=== PATIENT | female | born 1985 | race Caucasian/White ===

== ENCOUNTER 2024-07-20 10:34 | Emergency (ER) | payer OTHER, SELFPAY ==
[2024-07-20 11:02] VITALS: BP 144/91; PULSE 83; RESP 16; TEMP 36.8; O2SAT 95
--- NOTE | 2024-07-20 11:06 | ED_ITS ---
HPI - URI/Sore Throat General Chief Complaint: Upper Respiratory Infection Stated Complaint: Sore Throat Time Seen by Provider: 07/20/24 10:55 Source: patient and RN notes reviewed Mode of arrival: ambulatory Limitations: no limitations History of Present Illness HPI Narrative: Patient presents today complaining of sore throat, headache, nausea since yesterday. She has been taking Tylenol and ibuprofen with mild relief. Daughter sick with similar symptoms. Related Data Home Medications ?Medication ?Instructions ?Recorded ?Confirmed ?Last Taken ?Type levothyroxine 88 mcg tablet mcg 07/20/24 Unknown History sertraline 100 mg tablet mg 07/20/24 Unknown History Allergies Allergy/AdvReac Type Severity Reaction Status Date / Time Sulfa (Sulfonamide Allergy Unknown Unknown Verified 07/20/24 11:01 Antibiotics) Review of Systems Review of Systems: CONSTITUTIONAL: Denies body aches, fever, chills, or sweats. EYES: Denies visual changes, redness, or discharge. ENT: Denies rhinorrhea, congestion, or otalgia.+ sore throat CARDIOVASCULAR: Denies chest pain, palpitations, or edema. RESPIRATORY: Denies cough or dyspnea. GASTROINTESTINAL: Denies abdominal pain, vomiting, or diarrhea.+ nausea GENITOURINARY: Denies dysuria or hematuria. SKIN: Denies rash, itching, or wounds. MUSCULOSKELETAL: Denies back pain, joint pain, or myalgia. NEUROLOGIC: Denies numbness, tingling, or weakness.+ headache PSYCH: Denies depression or anxiety. PMFSH Comments At time of signature, I have reviewed and agree with nursing past medical, surgical, social and family history unless otherwise noted. Please see nursing chart for further information. There is no relevant family history pertinent to the presenting complaint Exam Narrative: GENERAL: Well-appearing, well-nourished, and in no acute distress. HEAD: Normocephalic, atraumatic. EYES: EOMI. No redness or drainage. Conjunctivae normal. ENT: Mucous membranes pink and moist. Nares clear. No rhinorrhea. TMs normal bilaterally. Throat mildly erythematous without edema or exudate. Uvula m idline. NECK: Normal AROM. Supple. No lymphadenopathy. CHEST: No respiratory distress. Clear to auscultation. HEART: Regular rate and rhythm. No murmur appreciated. EXTREMITIES: Normal range of motion. No edema. SKIN: Warm, dry, no rash. Capillary refill normal. Normal skin turgor. NEURO: No focal deficits. Alert and oriented x3. Gait steady. PSYCH: Normal affect. No signs of depression or anxiety. Course Course Level of Care: [facility] Visit Vital Signs Vital signs: Vital Signs Temperature 98.3 F 07/20/24 11:02 Pulse Rate 83 07/20/24 11:02 Respiratory Rate 16 07/20/24 11:02 Blood Pressure 144/91 H 07/20/24 11:02 Pulse Oximetry 95 07/20/24 11:02 Oxygen Delivery Room Air 07/20/24 11:02 Temperature 98.3 F 07/20/24 11:02 Pulse Rate 83 07/20/24 11:02 Respiratory Rate 16 07/20/24 11:02 Blood Pressure 144/91 H 07/20/24 11:02 Pulse Oximetry 95 07/20/24 11:02 Oxygen Delivery Room Air 07/20/24 11:02 Reviewed MDM - URI/Sore Throat MDM Narrative Medical decision making narrative: Rapid strep negative. Culture pending. Symptoms likely viral in etiology. Discussed [id number] medication use and duration of illness. Declines prescription antiemetic. Anticipatory guidance given. Differential Diagnosis Differential diagnosis: Likely upper respiratory infection, viral infection, pharyngitis and other (Strep throat) Lab Data Attestation: I reviewed the patient's lab results. Lab results narrative: Rapid strep negative Critical Care Time Critical Care Time Critical Care Time: No Discharge Plan Discharge Clinical Impression: Upper respiratory infection Qualifiers: URI type: unspecified URI Qualified Code(s): J06.9 - Acute upper respiratory infection, unspecified Patient Disposition: Home, Self-Care Condition: Stable Instructions: Upper Respiratory Infection (DC) Additional Instructions: Your rapid strep swab was negative today at [facility]. You will be notified in a few days if the culture comes back positive for strep, and appropriate antibiotics will be called in for you at that time. Your symptoms are likely due to a viral illness, which is not treated with antibiotics. Viral symptoms can be present for up to 7-10 days. Take Tylenol or ibuprofen for fever or pain. Rest and stay hydrated. Follow up with your PCP in 7 days if symptoms are not improving. Go to the ER immediately if you have any difficulty breathing or swallowing. Your blood pressure was elevated above 120/80 today at Urgent Care. This puts you above the threshold for follow up. Please schedule a followup visit with your personal physician as soon as possible, for further evaluation and treatment. Even blood pressure exceeding 120/80 may indicate pre-hypertension. Patient Language: Chinese Prescriptions: No Action sertraline 100 mg tablet levothyroxine 88 mcg tablet Follow-up/Referrals: Varun,Yasmin Jacob MD [Primary Care Provider] - Time of Disposition: 11:08
[2024-07-20 11:08] LABS: EDSTREPNEGPOS1 Negative (Negative)
--- OUTSIDE RECORDS SUMMARY | 2024-07-20 12:50 | XMS_ITS | Clinical Summary ---
Author Organization [employer] [address] [place] [address] Phone Care Team Providers Care Fashion Artist Name Role Phone Lewis Stephens MD Primary Care Provider Allergies Active Allergy Reactions Criticality Noted Date Comments Sulfa (Sulfonamide Antibiotics) Rash Low 01/2015 Medications No known medications Active Problems Problem Noted Date Diagnosed Date Dysmenorrhea 07/12/2014 Heavy menstrual bleeding 07/12/2014 Dyspareunia 07/12/2014 PTC, s/p MgSO4, hold procard ia, lasix 20 x2, chest pain: elev trop-now WNL, abn EKG-now WNL, cards consult, bnp 1867, echo nl, BMZ max 11/16-->5a 11/17/2012 Social History Tobacco Use Types Packs/Day Years Used Date Smoking Tobacco: Never Alcohol Use Standard Drinks/Week Comments No 0 (1 standard drink = 0.6 oz pur e alcohol) Comments No Sex and Gender Information Value Date Recorded Sex Assigned at Not on file Legal Sex Female 9:17 AM CDT Gender Identity Not on file Sexual Orientation Not on file 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 Not on file Not on file Not on stacy e Last Filed Vital Signs Vital Sign Reading Time Taken Comments Blood Pressure 102/60 07/12/2014 10:59 AM CDT Pulse 83 11/19/2012 3:20 PM CDT Temperature 36.6 C (97.9 F) 11/19/2012 3:20 PM CDT Respiratory Rate 18 11/19/2012 3:20 PM CDT Oxygen Saturation 98% 11/19/2012 3:20 PM CDT Inhaled Oxygen Concentration - - Weight 59 kg (130 lb) 07/12/2014 10:59 AM CDT Height 161.3 cm (5' 3.5 ) 07/12/2014 10:59 AM CD T Body Mass Index 22.67 07/12/2014 10:59 AM CDT Plan of Treatment Health Maintenance Due Date Last Done Comments CERVICAL CANCER SCREENING 07/12/20172014, 05/06/2013 (Previously completed) INFLUENZA VACCINE (#1) 2023 8, 05/31/2015 DTAP/TDAP/TD VACCINES (3 - T d or Tdap) 03/13/2028 03/13/2018, 05/31/2015 HEPATITIS B VACCINES Completed 11/23/1996, 07/17/1996, 06/19/1996 HPV VACCINES Aged Out No longer eligi ble based on patient's age to complete this topic PNEUMOCOCCAL VACCINE 0-49 YEARS Aged Out No longer eligible b ased on patient's age to complete this topic Procedures Procedure Name Priority Date/Time Associated Diagnosis Comments CERV/VAG CYTO SCREEN PAP RLFX HPV Routine 07/12/2014 11:01 AM CDT Routine gynecological examination Special screening examination for human papillomavirus (HPV) from Last 3 Months or Most Recently Relevant to Health Maintenance Results * CERV/VAG CYTOPATH, THIN PREP IMAGR RFLX HPV (CP) (07/12/2014 11:01 AM CDT) CLINICAL INFORMATION [employer] [facility] Comment: Routine exam HEALTHY LAST MENSTRUAL PERIOD [employer] [facility] Comment:07/01/14 PREV PAP: [employer] [facility] Comment:05/06/13 NIL PREV BX: [employer] [facility] Comment:Information not prov ided SOURCE [employer] [facility] Comment:Endocervix ADEQUACY: [employer] [facility] Comment: Satisfactory for evaluation. Endocervical/transformation zone component present. INTERPRETATION [employer] [facility] Comment:Negative for intraep ithelial lesion or malignancy. COMMENT [employer] [facility] Comment: This Pap test has been evaluated with computer assisted technology. RIBBON LAPPER TENDER: [employer] [facility] Comment: STEVE, CT(ASCP) Test Performed at: [employer] [address] [place] [address] RADHA HOOKER MD Endocervical 07/12/2014 11:0 1 AM CDT Aston Young MD PATHOLOGY/CYTOLOGY ORDERABLES Fi nal Result [employer] [facility] [address] [place] [address] from Last 3 Months or Most Recently Relevant to Health Maintenance Insurance Advance Directives For more information, please contact: [phone] * Full Code (Latest Code Status on File) Date Activated Date Inactivated Comments 11/17/2012 4:21 AM 11/19/2012 7:11 PM Care Teams Fashion Artist Relationship Specialty Start Date End Date Lewis Stephens MD [address] [place] [address] PCP - General Internal Medicine 06/17/14
--- OUTSIDE RECORDS SUMMARY | 2024-07-20 12:51 | XMS_ITS | Referral Summary ---
Author Organization [facility] [place] [address] [facility] [place] Address [address] [place] [address] Care Team Providers Care Claims Attorney Name Role Phone Eden Cook BORDEREAU CLERK Primary Care Provider + Allergies Active Allergy Reactions Criticality Noted Date Comments Sulfa (Sulfonamide Antibiotics) Rash Reaction: Rash, Medications SUMAtriptan (IMITREX) 100 mg tablet Take 1 tablet (100 mg total) by mouth daily as needed 3 Active simethicone (GAS-X) 125 mg capsule Take one tablet up to 4 times daily for problematic bloating and nausea. 120 capsule 3 3 Active tiZANidine (ZANAFLEX) 4 mg tabletIndicati ons:Lumbago of lumbar region with sciatica Take 1 tablet (4 mg total) by mouth every 6 (six) hours as needed (Take as directed to relax muscles) Collaborating physician Rolly Britt MD 20 tablet 3 Active levothyroxine (SYNTHROID) 88 mcg tablet Take 1 tablet (88 mcg total) by mouth daily 3 Active benzonatate (TESSALON) 200 mg capsuleIndicat ions:Acute cough Take 1 capsule (200 mg total) by mouth 3 (three) times a day as needed for cough 42 capsule 3 Active albuterol HFA (PROVENTIL HFA,VENTOLIN HFA,PROAIR HFA) 90 mcg/actuation inhalerIndicat ions:Acute cough Inhale 2 puffs every 6 (six) hours as needed for wheezing 1 each 3 Active Active Problems Problem Noted Date Diagnosed Date Cellulitis and abscess of lower extremity 2022 Irritable bowel syndrome wit h both constipation and diarrhea 01/24/2023 Bloating 01/24/[address] scan, small bowel 01/24/[address] scan, colon 01/24/2023 Right sided abdominal pain 01/24/2023 Migraine 01/04/2023 Fatigue 07/31/2022 Hypothyroidism 02/16/2022 High thyroid stimulating hormone (TSH) level Mixed anxiety and depressive disorder 11/16/2021 Multiple joint pain 11/07/2021 Bilateral elbow joint pain 08/29/2021 Bilateral carpal tunnel syndrome 06/05/2021 Impingement syndrome of right shoulder region Lateral epicondylitis of right elbow 06/05/2021 Pain in joint of right shoulder 06/05/2021 Obese 05/11/2021 Anxiety 03/01/2020 Tension-type headache 03/01/2020 Sciatica of right side 10/02/2016 Kidney stone 10/02/2016 Pharyngeal disorder 09/02/2015 Dysmenorrhea 07/12/2014 Heavy menstrual bleeding 07/12/2014 contractions 11/17/2012 Social History Tobacco Use Types Packs/Day Years Used Date Smoking Tobacco: Never Smokeless Tobacco: Never Tobacco Cessation:Counseling Given: Not Answered Alcohol Use Standard Drinks/Week Comments Yes 0 (1 standard drink = 0.6 oz pur e alcohol) AUDIT-C Answer Date Recorded Q1: How often do you have a drink containing alc ohol? Monthly or less 01/24/2023 Average Number of Drinks Not on file 023 Frequency of Binge Drinking Not on file 01/05 Personal Safety Answer Date Recorded Have you ever been in or are you currently in a harmful physical or emotional relationship or is someone making you feel afraid or unsafe? Denies 03/20/2023 Comments No Sex and Gender Information Value Date Recorded Sex Assigned at Not on file Legal Sex Female 2:54 PM SUMATRA OPENER Gender Identity Not on file Sexual Orientation Not on file Last Filed Vital Signs Vital Sign Reading Time Taken Comments Blood Pressure 126/84 04/24/2023 6:14 PM SUMATRA OPENER Pulse 78 04/24/2023 6:14 PM SUMATRA OPENER Temperature 37.7 C (99.9 F) 04/24/2023 6:14 PM SUMATRA OPENER Respiratory Rate 22 04/24/2023 6:14 PM SUMATRA OPENER Oxygen Saturation 99% 04/24/2023 6:14 PM SUMATRA OPENER Inhaled Oxygen Concentration - - Weight 83 kg (183 lb) 04/24/2023 6:14 PM SUMATRA OPENER Height 162.6 cm (5' 4 ) 04/24/2023 6:14 PM SUMATRA OPENER Body Mass Index 31.41 04/24/2023 6:14 PM SUMATRA OPENER Plan of Treatment Not on file Insurance [facility] CHOICE PLUS [facility] CHOICE PLUS Advance Directives For more information, please contact: [phone] * Full Code (Latest Code Status on File) Date Activated Date Inactivated Comments 03/20/2023 11:24 AM 03/20/2023 5:38 PM * Full Code Date Activated Date Inactivated Comments 03/20/2023 11:24 AM 03/20/2023 11:24 AM Care Teams Claims Attorney Relationship Specialty Start Date End Date Eden Cook NP [address] [place] [address] PCP - General Nurse Practitioner 03/26/22
--- OUTSIDE RECORDS SUMMARY | 2024-07-20 12:51 | XMS_ITS | Data Portability ---
Author Organization [facility]ERSocorroBonaparte H Address [address] [facility] [place] [address] Care Team Providers Care Conservation Specialist Name Role Phone BRANDISATHYACOLETTE Charge Master Analyst DOE STANTON Primary Care Provider Unavailab le Assessment Encounter Date Assessment Date Assessment LastModified by Organization Details LastModified Time 09/10/2017 09/10/2017 Newly with twins per US zone ( about 8 weeks today) discussed her nausea and some pubic bone pain as well as twin issues wanted to have her labs drawn. 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 discussed IUD expiration in future Not available 04/10/2024 12:11:02 Plan of Treatment Reminders Order Date Submit Date Provider Last Modified By Organization Details Last Modified Time Details Appointments ANY 15 2024 08:45A M DOE STANTON MD Not available Not available Not available Lab TSH, ultra-sen sitive, serum 2024 025 [email or web address] [facility], [address] [facility] [address], [place], [address], 06/18/2024 17:28:02 HbA1c (hemoglob in A1c), blood 2024 025 LEILANI [facility], [address] [facility], [place], [address], 06/06/2024 08:37:34 lipid panel, serum 2024 025 LEILANI [facility], [address] [facility] [address], [place], [address], 06/06/2024 08:37:29 CMP, serum or plasma 2024 025 [facility], [address] [place] [address], [place], [address], 06/06/2024 08:37:30 CBC 2024 025 [facility], [address] [place] [address], [place], [address], 06/06/2024 08:37:37 TSH, ultra-sen sitive, serum 2024 025 [facility], [address] [place] [address], [place], [address], 06/06/2024 08:37:32 iron + total iron-bind ing capacity (TIBC), serum 2024 025 [facility], [address] [place] [address], [place], [address], 06/06/2024 08:37:33 ferritin, serum or plasma 2024 025 [facility], [address] [place] [address], [place], [address], 06/06/2024 08:37:36 vitamin D, 25-hydrox y, total, serum 2024 025 [facility], [address] [place] [address], [place], [address], 06/06/2024 08:37:38 cytology report, thin prep, smear or scraping, cervical or vaginal 2023 024 [facility], [address] [place] [address], [place], [address], 04/16/2024 11:31:31 SARS CoV 2 RNA (COVID-19 ), QL, cardiology specialist-PCR, respirato ry specimen - cough, runny nose, fever, body aches. headaches . denies being exposed to pos COVID person. [place] [address] 2019 020 [facility] ([facility]), [address] [place], [address], 12/18/2019 20:00:58 hsv (1+2) igg, serum 2017 018 [facility], [address] [place] [address], [address], [place], [address], 09/14/2017 16:11:08 obstetric screen, serum or blood 2017 018 [facility], [address] [place] [address], [address], [place], [address], 09/14/2017 16:11:06 urinalysi s complete, reflex culture 2017 018 [facility], [address] [place] [address], [address], [place], [address], 09/14/2017 16:11:07 drug screen, urine 2017 018 [facility], [address] [place] [address], [address], [place], [address], 09/14/2017 16:11:07 HIV (1+O+2) Ab, serum 2017 018 [email or web address] [facility], [address] [place] [address], [address], [place], [address], 09/23/2017 09:53:43 Referral None recorded. Procedures None recorded. Surgeries None recorded. Imaging None recorded. Medication Orders levothyro xine 125 mcg tablet 2024 025 [id number], [address], [place], [id number], 06/18/2024 17:28:11 sertralin e 150 mg capsule 2024 025 [facility][id number], [address], [place], [place], [id number], 06/05/2024 14:38:52 Patient TargetsNo targets recorded. Patient Instructions Encounter Date Encounter Id Patient Instructions Last Modified By Organization Details Last Modified Time 12/17/2019 [id number] Reviewed the following recommendations: -Stay home and separate from others as much as possible. -Monitor your symptoms and seek medical attention for trouble breathing, persistent chest pain, confusion, or bluish lips or face. -Wear a mask if you must be around other people. -Wash your hands often for 20 seconds with soap and water and clean high-touch surfaces daily -You may discontinue home isolation if your symptoms are improving and it has been 10 days since symptoms started. [email or web address] Not available 12/17/2019 15:05:49 04/10/2024 [id number] A healthy lifestyle: care instructions Not available 04/10/2024 12:02:19 06/05/2024 [id number] A healthy lifestyle: care instructions Not available 06/05/2024 14:38:42 Reason for Referral None Reported. Results Created Date Observation Date Name Description Value Unit Range Abnormal Flag Note LastModifiedBy Organization Detail LastModifiedTime 09/11/19 18 09/11/2017 obste tric scree n, serum or blood HBsAg screen Negati ve negati ve Not Available [facility] ([facility]) [address] [place], [address], 09/14/2017 16:11:06 09/11/19 18 09/11/2017 obste tric scree n, serum or blood RPR Non Reacti ve non reacti ve Not Available [facility] ([facility]) [address] [place], [address], 09/14/2017 16:11:06 09/11/19 18 09/11/2017 obste tric scree n, serum or blood rubella antibodies, IgG 5.44 index immune >0.99 Non-i mmune <0.90 Equiv ocal 0.90 - 0.99 Immun e >0.99 Not Available [facility] ([facility]) [address] [place], [address], 09/14/2017 16:11:06 09/11/19 18 09/11/2017 obste tric scree n, serum or blood ABO grouping A Not Available [facility] ([facility]) [address] [place], [address], 09/14/2017 16:11:06 09/11/19 18 09/11/2017 obste tric scree n, serum or blood Rh factor Positi ve Pleas e note: Prior recor ds for this patie nt's ABO / Rh type are not avail able for addit ional verif icati on. Not Available [facility] ([facility]) [address] [place], [address], 09/14/2017 16:11:06 09/11/19 18 09/11/2017 obste tric scree n, serum or blood antibody screen Negati ve negati ve Not Available [facility] ([facility]) [address] [place], [address], 09/14/2017 16:11:06 09/11/19 18 09/11/2017 obste tric scree n, serum or blood WBC 10.2 x10e3 /uL 3.4-10 .8 Not Available [facility] ([facility]) [address] [place], [address], 09/14/2017 16:11:06 09/11/19 18 09/11/2017 obste tric scree n, serum or blood RBC 4.33 x10e6 /uL 3.77-5 .28 Not Available [facility] ([facility]) [address] [place] [address], [address], 09/14/2017 16:11:06 09/11/19 18 09/11/2017 obste tric scree n, serum or blood hemoglobin 12.6 g/dL 11.1-1 5.9 Not Available [facility] ([facility]) [address] [place], [address], 09/14/2017 16:11:06 09/11/19 18 09/11/2017 obste tric scree n, serum or blood hematocrit 37.4 % 34.0-4 6.6 Not Available [facility] ([facility]) [address] [place], [address], 09/14/2017 16:11:06 09/11/19 18 09/11/2017 obste tric scree n, serum or blood MCV 86 fL 79-97 Not Available [facility] ([facility]) [address] [place], [address], 09/14/2017 16:11:06 09/11/19 18 09/11/2017 obste tric scree n, serum or blood MCH 29.1 pg 26.6-3 3.0 Not Available [facility] ([facility]) [address] [place], [address], 09/14/2017 16:11:06 09/11/19 18 09/11/2017 obste tric scree n, serum or blood MCHC 33.7 g/dL 31.5-3 5.7 Not Available [facility] ([facility]) [address] [place], [address], 09/14/2017 16:11:06 09/11/19 18 09/11/2017 obste tric scree n, serum or blood RDW 14.2 % 12.3-1 5.4 Not Available [facility] ([facility]) [address] [place], [address], 09/14/2017 16:11:06 09/11/19 18 09/11/2017 obste tric scree n, serum or blood platelets 200 x10e3 /uL 150-37 9 Not Available [facility] ([facility]) [address] [place] [facility], [place], [address], 09/14/2017 16:11:06 09/11/19 18 09/11/2017 obste tric scree n, serum or blood neutrophils 72 % not estab. Not Available [facility] ([facility]) [address] [place] [facility], [place], [address], 09/14/2017 16:11:06 09/11/19 18 09/11/2017 obste tric scree n, serum or blood lymphs 22 % not estab. Not Available [facility] ([facility]) [address] [facility], [place], [address], 09/14/2017 16:11:06 09/11/19 18 09/11/2017 obste tric scree n, serum or blood monocytes 5 % not estab. Not Available [facility] ([facility]) [address] [facility], [place], [address], 09/14/2017 16:11:06 09/11/19 18 09/11/2017 obste tric scree n, serum or blood eos 1 % not estab. Not Available [facility] ([facility]) [address] [place] [facility], [place], [address], 09/14/2017 16:11:06 09/11/19 18 09/11/2017 obste tric scree n, serum or blood basos 0 % not estab. 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 0 above high normal Not Available [facility] ([facility]) [address] [place], [address], 09/14/2017 16:11:06 09/11/19 18 09/11/2017 obste tric scree n, serum or blood lymphs (absolute) 2.2 x10e3 /uL 0.7-3. 1 Not Available [facility] ([facility]) [address] [place], [address], 09/14/2017 16:11:06 09/11/19 18 09/11/2017 obste tric scree n, serum or blood monocytes(ab solute) 0.5 x10e3 /uL 0.1-0. 9 Not Available [facility] ([facility]) [address] [place], [address], 09/14/2017 16:11:06 09/11/19 18 09/11/2017 obste tric scree n, serum or blood eos (absolute) 0.1 x10e3 /uL 0.0-0. 4 Not Available [facility] ([facility]) [address] [place], [address], 09/14/2017 16:11:06 09/11/19 18 09/11/2017 obste tric scree n, serum or blood baso (absolute) 0.0 x10e3 /uL 0.0-0. 2 Not Available [facility] ([facility]) [address] [place], [address], 09/14/2017 16:11:06 09/11/19 18 09/11/2017 obste tric scree n, serum or blood immature granulocytes 0 % not estab. Not Available [facility] ([facility]) [address] [place], [address], 09/14/2017 16:11:06 09/11/19 18 09/11/2017 obste tric scree n, serum or blood immature grans (abs) 0.0 x10e3 /uL 0.0-0. 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 Not Available [facility] ([facility]) [address] [place], [address], 09/14/2017 16:11:07 09/11/19 18 09/11/2017 drug scree n, urine barbiturates Negati ve NG/mL cutoff =200 Not Available [facility] ([facility]) [address] [place], [address], 09/14/2017 16:11:07 09/11/19 18 09/11/2017 drug scree n, urine benzodiazepi mason Negati ve NG/mL cutoff =200 Not Available [facility] ([facility]) [address] [place], [address], 09/14/2017 16:11:07 09/11/19 18 09/11/2017 drug scree n, urine cannabinoid Negati ve NG/mL cutoff =50 Not Available [facility] ([facility]) [address] [place], [address], 09/14/2017 16:11:07 09/11/19 18 09/11/2017 drug scree n, urine cocaine (metab.) Negati ve NG/mL cutoff =300 Not Available [facility] ([facility]) [address] [place], [address], 09/14/2017 16:11:07 09/11/19 18 09/11/2017 drug scree n, urine methaqualone Negati ve NG/mL cutoff =300 Not Available [facility] ([facility]) [address] [place] [address], [address], 09/14/2017 16:11:07 09/11/19 18 09/11/2017 drug scree n, urine opiates Negati ve NG/mL cutoff =2000 Opiat e test inclu malcolm Codei ne and Morph ine only. Not Available [facility] ([facility]) [address] [place], [address], 09/14/2017 16:11:07 09/11/19 18 09/11/2017 drug scree n, urine phencyclidin e Negati ve NG/mL cutoff =25 Not Available [facility] ([facility]) [address] [place] [address], [address], 09/14/2017 16:11:07 09/11/19 18 09/11/2017 drug scree n, urine methadone screen, urine Negati ve NG/mL cutoff =300 Not Available [facility] ([facility]) [address] [place], [address], 09/14/2017 16:11:07 09/11/19 18 09/11/2017 drug scree n, urine propoxyphene , urine Negati ve NG/mL cutoff =300 Not Available [facility] ([facility]) [address] [place] [address], [address], 09/14/2017 16:11:07 09/11/19 18 09/11/2017 urina lysis compl ete, refle x cultu re specific gravity 1.024 1.005- 1.030 Not Available [facility] ([facility]) [address] [place], [address], 09/14/2017 16:11:07 09/11/19 18 09/11/2017 urina lysis compl ete, refle x cultu re pH 5.0 5.0-7. 5 Not Available [facility] ([facility]) [address] [place], [address], 09/14/2017 16:11:07 09/11/19 18 09/11/2017 urina lysis compl ete, refle x cultu re urine-color Yellow yellow Not Available [facility] ([facility]) [address] [place], [address], 09/14/2017 16:11:07 09/11/19 18 09/11/2017 urina lysis compl ete, refle x cultu re appearance Clear clear Not Available [facility] ([facility]) [address] [place], [address], 09/14/2017 16:11:07 09/11/19 18 09/11/2017 urina lysis compl ete, refle x cultu re WBC esterase 1+ negati ve abnormal Not Available [facility] ([facility]) [address] [place], [address], 09/14/2017 16:11:07 09/11/19 18 09/11/2017 urina lysis compl ete, refle x cultu re protein Negati ve negati ve/tra ce Not Available [facility] ([facility]) [address] [place], [address], 09/14/2017 16:11:07 09/11/19 18 09/11/2017 urina lysis compl ete, refle x cultu re glucose Negati ve negati ve Not Available [facility] ([facility]) [address] [place], [address], 09/14/2017 16:11:07 09/11/19 18 09/11/2017 urina lysis compl ete, refle x cultu re ketones Negati ve negati ve Not Available [facility] ([facility]) [address] [place], [address], 09/14/2017 16:11:07 09/11/19 18 09/11/2017 urina lysis compl ete, refle x cultu re occult blood Negati ve negati ve Not Available [facility] ([facility]) [address] [place], [address], 09/14/2017 16:11:07 09/11/19 18 09/11/2017 urina lysis compl ete, refle x cultu re bilirubin Negati ve negati ve Not Available [facility] ([facility]) [address] [place], [address], 09/14/2017 16:11:07 09/11/19 18 09/11/2017 urina lysis compl ete, refle x cultu re urobilinogen ,semi-qn 0.2 mg/dL 0.2-1. 0 Not Available [facility] ([facility]) [address] [place] [facility], [place], [address], 09/14/2017 16:11:07 09/11/19 18 09/11/2017 urina lysis compl ete, refle x cultu re nitrite, urine Negati ve negati ve Not Available [facility] ([facility]) [address] [place], [address], 09/14/2017 16:11:07 09/11/19 18 09/11/2017 urina lysis compl ete, refle x cultu re microscopic examination See below: Micro scopi c was indic ated and was perfo rmed. Not Available [facility] ([facility]) [address] [place], [address], 09/14/2017 16:11:07 09/11/19 18 09/11/2017 urina lysis compl ete, refle x cultu re WBC 6-10 /hpf 0 - 5 abnormal Not Available [facility] ([facility]) [address] [place], [address], 09/14/2017 16:11:07 09/11/19 18 09/11/2017 urina lysis compl ete, refle x cultu re RBC 0-2 /hpf 0 - 2 Not Available [facility] ([facility]) [address] [place], [address], 09/14/2017 16:11:07 09/11/19 18 09/11/2017 urina lysis compl ete, refle x cultu re epithelial cells (non renal) 0-10 /hpf 0 - 10 Not Available [facility] ([facility]) [address] [place], [address], 09/14/2017 16:11:07 09/11/19 18 09/11/2017 urina lysis compl ete, refle x cultu re epithelial cells (renal) 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 Not Available [facility] ([facility]) [address] [place], [address], 09/14/2017 16:11:07 09/11/19 18 09/11/2017 urina lysis compl ete, refle x cultu re casts BOX WORKER Not Available [facility] ([facility]) [address] [place], [address], 09/14/2017 16:11:07 09/11/19 18 09/11/2017 urina lysis compl ete, refle x cultu re cast type BOX WORKER Not Available [facility] ([facility]) [address] [place] [address], [address], 09/14/2017 16:11:07 09/11/19 18 09/11/2017 urina lysis compl ete, refle x cultu re crystals BOX WORKER Not Available [facility] ([facility]) [address] [facility], [place], [address], 09/14/2017 16:11:07 09/11/19 18 09/11/2017 urina lysis compl ete, refle x cultu re crystal type BOX WORKER Not Available [facility] ([facility]) [address] [place], [address], 09/14/2017 16:11:07 09/11/19 18 09/11/2017 urina lysis compl ete, refle x cultu re mucus threads Presen t not estab. 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 Not Available [facility] ([facility]) [address] [place], [address], 09/14/2017 16:11:07 09/11/19 18 09/11/2017 urina lysis compl ete, refle x cultu re trichomonas BOX WORKER Not Available [facility] ([facility]) [address] [place], [address], 09/14/2017 16:11:07 09/11/19 18 09/11/2017 urina lysis compl ete, refle x cultu re comment BOX WORKER Not Available [facility] ([facility]) [address] [place], [address], 09/14/2017 16:11:07 09/11/19 18 09/11/2017 urina lysis compl ete, refle x cultu re microscopic examination 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 Not Available [facility] ([facility]) [address] [facility], [place], [address], 09/14/2017 16:11:07 09/11/19 18 09/14/2017 urina lysis compl ete, refle x cultu re urine culture, routine Final report Not Available [facility] ([facility]) [address] [facility], [place], [address], 09/14/2017 16:11:07 09/11/19 18 09/14/2017 urina lysis compl ete, refle x cultu re result 1 Commen t Mixed uroge nital irineo Great er than 100,0 00 colon y formi ng units per mL Not Available [facility] ([facility]) [address] [facility], [place], [address], 09/14/2017 16:11:07 09/11/19 18 09/11/2017 hsv (1+2) igg, serum hsv 1 IgG, type spec <0.91 index 0.00-0 .90 Negat ian <0.91 Equiv ocal 0.91 - 1.09 Posit ian >1.09 Note: Negat ian indic ates no antib odies detec cherri to HSV-1 . Equiv ocal may sugge st early infec tion. If clini oscar appro priat e, retes t at later date. Posit ian indic ates antib odies detec cherri to HSV-1 . Not Available [facility] ([facility]) [address] [facility], [place], [address], 09/14/2017 16:11:08 09/11/19 18 09/11/2017 hsv (1+2) igg, serum hsv 2 IgG, type spec <0.91 index 0.00-0 .90 Negat ian <0.91 Equiv ocal 0.91 - 1.09 Posit ian >1.09 Note: Negat ian indic ates no antib odies detec cherri to HSV-2 . Equiv ocal may sugge st early infec tion. If clini oscar appro priat e, retes t at later date. Posit ian indic ates antib odies detec cherri to HSV-2 . Not Available [facility] ([facility]) [address] [facility], [place], [address], 09/14/2017 16:11:08 09/11/19 18 09/11/2017 HIV (1+O+ 2) Ab, serum HIV screen 4TH generation wrfx Non Reacti ve non reacti ve Not Available [facility] ([facility]) [address] [facility], [place], [address], 09/14/2017 16:11:08 12/17/19 20 12/17/2019 SARS CoV 2 RNA (COVI D-19) , QL, cardiology specialist-P CR, respi rator y speci men sars - cov - 2 PCR NEGATI VE mL Not Available [facility] ([facility]) [address] [place] [address], [address], 12/18/2019 20:00:58 12/17/19 20 12/17/2019 SARS CoV 2 RNA (COVI D-19) , QL, cardiology specialist-P CR, respi rator y speci men covidcom1 COMME NTS: This assay is desig radu to detec t the RdRp and N genes of SARS- CoV-2 using nucle ic acid ampli ficat ion. A negat ian resul t does not precl ude the possi bilit y of 2019- nCoV infec tion since the adequ acy of sampl e colle ction and/o r low viral burde n may resul t in the prese nce of viral nucle ic acids level s below the percy tical sensi tivit y of this test metho d. Not Available [facility] ([facility]) [address], [place], [address], 12/18/2019 20:00:58 12/17/19 20 12/17/2019 SARS CoV 2 RNA (COVI D-19) , QL, cardiology specialist-P CR, respi rator y speci men covidcom2 Posit ian resul ts are indic ative of the prese nce of SARS- CoV-2 RNA and do not rule out bacte rial infec tion or co-in fecti on with other virus es. Not Available [facility] ([facility]) [address] [facility], [place], [address], 12/18/2019 20:00:58 12/17/19 20 12/17/2019 SARS CoV 2 RNA (COVI D-19) , QL, cardiology specialist-P CR, respi rator y speci men covidcom3 Test resul ts shoul d be used along with other clini jennifer obser vatio ns, patie nt histo ry, epide miolo gical infor matio n and [facility]. Not Available [facility] ([facility]) [address] [facility], [place], [address], 12/18/2019 20:00:58 12/17/19 20 12/17/2019 SARS CoV 2 RNA (COVI D-19) , QL, cardiology specialist-P CR, respi rator y speci men covidcom4 This test has recei akosua FDA Emerg ency Use Autho rizat ion and has been verif ied by [facility] . This test is only autho rized for the durat ion of the decla ratio n and the circu mstan michaelle that exist to justi fy the autho rizat ion of the emerg ency use of in vitro diagn ostic tests for the detec tion of SARS- CoV-2 virus and/o r diagn osis of COVID -19 infec tion under secti on 564 (b) (1) of the Act. 11 U.S.C . 360bb b-3 (b) (1), unles s the autho rizat ion is termi nated or revok ed soone r. Not Available [facility] (Lab) [address] [place], [address], 12/18/2019 20:00:58 12/17/19 20 12/17/2019 SARS CoV 2 RNA (COVI D-19) , QL, cardiology specialist-P CR, respi rator y speci men covidcom5 [place] [facility] is certi fied under CLIA- 88 as quali fied to perfo rm high compl exity testi ng. This testi ng was perfo rmed in the [facility] [place] [place] [address] (CLIA Licen se #[id number], CAP #[id number], AU-ID #[id number]). Not Available [facility] (Lab) [address] [place], [address], 12/18/2019 20:00:58 12/17/19 20 12/17/2019 SARS CoV 2 RNA (COVI D-19) , QL, cardiology specialist-P CR, respi rator y speci men covidcom6 Facts heet for healt hcare provi ders: https ://ww w.fda .gov/ media /1362 56/do wnloa d Facts heet for patie nts: https ://ww w.fda .gov/ media /1362 57/do wnloa d Not Available [facility] (Lab) [address] [facility], [place], [address], 12/18/2019 20:00:58 04/10/20 24 04/16/2024 IGP, RFX APTIM A HPV ASCU diagnosis: COMMEN T NEGAT IAN FOR INTRA EPITH ELIAL LESIO N OR MALLESA MARTINEZ . Not Available [facility] ([facility]) [address] [facility], [place], [address], 04/16/2024 11:31:30 04/10/20 24 04/16/2024 IGP, RFX APTIM A HPV ASCU specimen adequacy: BRIANA Ervin Satis facto ry for evalu ation . Endoc ervic al and/o r squam ous metap lasti c cells (endo cervi jennifer compo nent) are prese nt. Not Available [facility] ([facility]) [address] [place], [address], 04/16/2024 11:31:30 04/10/20 24 04/16/2024 IGP, RFX APTIM A HPV ASCU clinician provided ICD10: BRIANA Ervin Z01.4 19 Not Available [facility] ([facility]) [address] [place], [address], 04/16/2024 11:31:30 04/10/20 24 04/16/2024 IGP, RFX APTIM A HPV ASCU performed by: Sarah Haddad (ASCP ) Not Available [facility] ([facility]) [address] [place], [address], 04/16/2024 11:31:30 04/10/20 24 04/16/2024 IGP, RFX APTIM A HPV ASCU . . Not Available [facility] ([facility]) [address] [place], [address], 04/16/2024 11:31:30 04/10/20 24 04/16/2024 IGP, RFX APTIM A HPV ASCU note: BRIANA Ervin The Pap smear is a scree soledad test desig radu to aid in the detec tion of shun ligna nt and malig nant condi tions of the uteri ne cervi x. It is not a diagn ostic proce dure and shoul d not be used as the sole means of detec ting cervi jennifer cance r. Both false -posi tive and false -nega tive repor ts do occur . Not Available [facility] ([facility]) [address] [place], [address], 04/16/2024 11:31:30 04/10/20 24 04/16/2024 IGP, RFX APTIM A HPV ASCU test methodology: COMMEN T This liqui d based ThinP rep(R ) pap test was jose eduardo lovelace with the use of an image guide stacie pineda Not Available [facility] ([facility]) [address] [place], [address], 04/16/2024 11:31:30 04/10/20 24 04/16/2024 IGP, RFX APTIM A HPV ASCU . COMMEN T The HPV DNA refle x crite carissa were not met with this speci men resul t there fore, no HPV testi ng was perfo rmed. Not Available [facility] ([facility]) [address] [facility], [place], [address], 04/16/2024 11:31:30 06/05/19 25 06/06/2024 LIPID PANEL cholesterol, total 169 mg/dL 100-19 9 Not Available [facility] ([facility]) [address] [place], [address], 06/06/2024 08:37:29 06/05/19 25 06/06/2024 LIPID PANEL triglyceride s 185 mg/dL 0-149 above high normal Not Available [facility] ([facility]) [address] [place], [address], 06/06/2024 08:37:29 06/05/19 25 06/06/2024 LIPID PANEL HDL cholesterol 58 mg/dL >39 Not Available [facility] ([facility]) [address] [place], [address], 06/06/2024 08:37:29 06/05/19 25 06/06/2024 LIPID PANEL VLDL cholesterol jennifer 31 mg/dL 5-40 Not Available [facility] ([facility]) [address] [place], [address], 06/06/2024 08:37:29 06/05/19 25 06/06/2024 LIPID PANEL LDL chol calc ([facility]) 80 mg/dL 0-99 Not Available [facility] ([facility]) [address] [place], [address], 06/06/2024 08:37:29 06/05/19 25 06/06/2024 COMP. METAB OLIC PANEL (14) glucose 74 mg/dL 70-99 Not Available [facility] ([facility]) [address] [place], [address], 06/06/2024 08:37:30 06/05/19 25 06/06/2024 COMP. METAB OLIC PANEL (14) BUN 8 mg/dL 6-20 Not Available [facility] ([facility]) [address] [place], [address], 06/06/2024 08:37:30 06/05/19 25 06/06/2024 COMP. METAB OLIC PANEL (14) creatinine 0.66 mg/dL 0.57-1 .00 Not Available [facility] ([facility]) [address] [place], [address], 06/06/2024 08:37:30 06/05/19 25 06/06/2024 COMP. METAB OLIC PANEL (14) eGFR 116 mL/mi n/1.7 3 >59 Not Available [facility] ([facility]) [address] [place], [address], 06/06/2024 08:37:30 06/05/19 25 06/06/2024 COMP. METAB OLIC PANEL (14) BUN/creatini ne ratio 12 9-23 Not Available [facility] ([facility]) [address] [place], [address], 06/06/2024 08:37:30 06/05/19 25 06/06/2024 COMP. METAB OLIC PANEL (14) sodium 135 mmol/ L 134-14 4 Not Available [facility] ([facility]) [address] [place], [address], 06/06/2024 08:37:30 06/05/19 25 06/06/2024 COMP. METAB OLIC PANEL (14) potassium 3.8 mmol/ L 3.5-5. 2 Not Available [facility] ([facility]) [address] [place], [address], 06/06/2024 08:37:30 06/05/19 25 06/06/2024 COMP. METAB OLIC PANEL (14) chloride 100 mmol/ L 96-106 Not Available [facility] ([facility]) [address] [place], [address], 06/06/2024 08:37:30 06/05/19 25 06/06/2024 COMP. METAB OLIC PANEL (14) carbon dioxide, total 22 mmol/ L 20-29 Not Available [facility] ([facility]) [address] [place], [address], 06/06/2024 08:37:30 06/05/19 25 06/06/2024 COMP. METAB OLIC PANEL (14) calcium 9.5 mg/dL 8.7-10 .2 Not Available [facility] ([facility]) [address] [place], [address], 06/06/2024 08:37:30 06/05/19 25 06/06/2024 COMP. METAB OLIC PANEL (14) protein, total 7.3 g/dL 6.0-8. 5 Not Available [facility] ([facility]) [address] [place], [address], 06/06/2024 08:37:30 06/05/19 25 06/06/2024 COMP. METAB OLIC PANEL (14) albumin 4.7 g/dL 3.9-4. 9 Not Available [facility] ([facility]) [address] [place], [address], 06/06/2024 08:37:30 06/05/19 25 06/06/2024 COMP. METAB OLIC PANEL (14) globulin, total 2.6 g/dL 1.5-4. 5 Not Available [facility] ([facility]) [address] [place], [address], 06/06/2024 08:37:30 06/05/19 25 06/06/2024 COMP. METAB OLIC PANEL (14) bilirubin, total 0.4 mg/dL 0.0-1. 2 Not Available [facility] ([facility]) [address] [place], [address], 06/06/2024 08:37:30 06/05/19 25 06/06/2024 COMP. METAB OLIC PANEL (14) alkaline phosphatase 58 IU/L 44-121 Not Available [facility] ([facility]) [address] [place], [address], 06/06/2024 08:37:30 06/05/19 25 06/06/2024 COMP. METAB OLIC PANEL (14) AST (SGOT) 22 IU/L 0-40 Not Available [facility] ([facility]) [address] [place], [address], 06/06/2024 08:37:30 06/05/19 25 06/06/2024 COMP. METAB OLIC PANEL (14) ALT (SGPT) 19 IU/L 0-32 Not Available [facility] ([facility]) [address] [place], [address], 06/06/2024 08:37:30 06/05/19 25 06/06/2024 TSH RFX ON ABNOR MAL TO FREE T4 TSH 15.000 uIU/m L 0.450- 4.500 above high normal Not Available [facility] ([facility]) [address] [place], [address], 06/06/2024 08:37:32 06/05/19 25 06/06/2024 IRON AND TIBC iron bind.cap.(TI BC) 296 ug/dL 250-45 0 Not Available [facility] ([facility]) [address] [facility], [place], [address], 06/06/2024 08:37:33 06/05/19 25 06/06/2024 IRON AND TIBC UIBC 209 ug/dL 131-42 5 Not Available [facility] ([facility]) [address] [place], [address], 06/06/2024 08:37:33 06/05/19 25 06/06/2024 IRON AND TIBC iron 87 ug/dL 27-159 Not Available [facility] ([facility]) [address] [place], [address], 06/06/2024 08:37:33 06/05/19 25 06/06/2024 IRON AND TIBC iron saturation 29 % 15-55 Not Available [facility] ([facility]) [address] [place], [address], 06/06/2024 08:37:33 06/05/1906/06/2024 HEMOG LOBIN A1C hemoglobin A1C 5.3 % 4.8-5. 6 Predi abete s: 5.7 - 6.4 Diabe nancy: >6.4 Glyce tawanda contr ol for adult s with diabe nancy: <7.0 Not Available [facility] ([facility]) [address] [place], [address], 06/06/2024 08:37:34 06/05/1906/06/2024 T4F T4,free (direct) 0.69 NG/dL 0.82-1 .77 below low normal Not Available [facility] ([facility]) [address] [place], [address], 06/06/2024 08:37:35 06/05/19 25 06/06/2024 GLADYS TIN ferritin 77 NG/mL 15-150 Not Available [facility] ([facility]) [address] [facility], [place], [address], 06/06/2024 08:37:36 06/05/19 25 06/06/2024 CBC, PLATE LET, NO DIFFE RENTI AL WBC 8.4 x10e3 /uL 3.4-10 .8 Not Available [facility] ([facility]) [address] [facility], [place], [address], 06/06/2024 08:37:37 06/05/1906/06/2024 CBC, PLATE LET, NO DIFFE RENTI AL RBC 4.73 x10e6 /uL 3.77-5 .28 Not Available [facility] ([facility]) [address] [facility], [place], [address], 06/06/2024 08:37:37 06/05/19 25 06/06/2024 CBC, PLATE LET, NO DIFFE RENTI AL hemoglobin 14.2 g/dL 11.1-1 5.9 Not Available [facility] ([facility]) [address] [facility], [place], [address], 06/06/2024 08:37:37 06/05/19 25 06/06/2024 CBC, PLATE LET, NO DIFFE RENTI AL hematocrit 41.8 % 34.0-4 6.6 Not Available [facility] ([facility]) [address] [facility], [place], [address], 06/06/2024 08:37:37 06/05/1906/06/2024 CBC, PLATE LET, NO DIFFE RENTI AL MCV 88 fL 79-97 Not Available [facility] ([facility]) [address] [facility], [place], [address], 06/06/2024 08:37:37 06/05/19 25 06/06/2024 CBC, PLATE LET, NO DIFFE RENTI AL MCH 30.0 pg 26.6-3 3.0 Not Available [facility] ([facility]) [address] [place], [address], 06/06/2024 08:37:37 06/05/19 25 06/06/2024 CBC, PLATE LET, NO DIFFE RENTI AL MCHC 34.0 g/dL 31.5-3 5.7 Not Available [facility] ([facility]) [address] [place], [address], 06/06/2024 08:37:37 06/05/19 25 06/06/2024 CBC, PLATE LET, NO DIFFE RENTI AL RDW 13.0 % 11.7-1 5.4 Not Available [facility] ([facility]) [address] [place], [address], 06/06/2024 08:37:37 06/05/19 25 06/06/2024 CBC, PLATE LET, NO DIFFE RENTI AL platelets 231 x10e3 /uL 150-45 0 Not Available [facility] ([facility]) [address] [place], [address], 06/06/2024 08:37:37 06/05/19 25 06/06/2024 VITAM IN D, 25-HY DROXY vitamin D, 25-hydroxy 36.4 NG/mL 30.0-1 00.0 Vitam in D defic iency has been defin ed by the Insti tute of Medic ine and an Endoc rine Socie ty pract ice guide line as a level of serum 25-OH vitam in D less than 20 ng/mL (1,2) . The Endoc rine Socie ty went on to furth er defin e vitam in D insuf ficie ncy as a level betwe en 21 and 29 ng/mL (2). 1. IOM (Inst itute of Medic ine). 2010. Dieta ry refer ence deepa es for calci um and D. Brad harding [place]: The Natio nal [facility] . 2. Holic k MF, Claude saleem [place], Ayah off-F errar i BROWN, et al. Evalu ation , treat ment, and preve ntion of vitam in D defic iency : an Endoc rine Socie ty clini jennifer pract ice guide line. JCEM. 2010; 96(7) :1911 -30. Not Available [facility] ([facility]) [address] [facility], [place], [address], 06/06/2024 08:37:38 Result Notes None recorded. Problems Name Problem SNOMED Code Status Onset Date Resolution Date Notes Provider Name and Address Organization Details Recorded Time 52062274 Completed 201704/17/2018 FRANSISCA Bautista, [place] - [facility] 4 15:45:12 Past history of pre-eclam psia 22358629946 9100 Active 2024 DOE STANTON MD Attn: Accounting ,[address] [place], [address] , [facility] - [facility] 5 15:24:34 Depressiv e disorder 01600107 Active 2024 DOE STANTON MD Attn: Accounting ,[address] [place], [address] , [facility] - SI 5 15:24:19 Postpartu m depressio n [id number] Active JADE Wong, [place] - [facility] 6 15:58:02 Problem Notes None recorded. Procedures Surgical History Date Name Laterality Status Provider Name and Address Organization Details Recorded Time 04/10/20 24 Date of Last Pap Smear completed Vidhya Yepez RN [facility] 04/16/2024 12:07:51 05/06/19 23 Carpal tunnel surgery completed Andie Beverly [place] - [facility] 06/05/2024 14:13:41 05/06/19 23 procedure on elbow completed Andie Beverly [place] [facility] 06/05/2024 14:14:26 04/27/20 20 abdominoplasty completed Andie Beverly [place] [facility] 06/05/2024 14:11:13 Imaging Results None recorded. Procedure Notes None recorded. Medical Equipment None Reported. Allergies Allergen ID Allergen Name Allergen Category Reaction Reaction Severity Criticality Documentation Date Start Date Code Code System Note Provider Name and Address Organization Details Recorded Time 26510 Substance with sulfonami de structure and antibacte rial mechanism of action (substanc e) medicatio n Not available Not available Not available 11/10/2014 86924 8003 SNOMED Not Available Not Available Not Available Medications Name Sig Start Date Stop Date Status Note LastModified by Organization Details LastModified Time Mirena 21 mcg/24 hr (up to 8 years) 52 mg intrauterin e device Take by intrauter ine route. active Not Available Not Available No t Available buspirone 5 mg tablet TAKE 1 TABLET BY MOUTH TWICE DAILY 06/05 completed Not Available Not Available Not Available azithromyci n 250 mg tablet 04/10 completed Not Available Not Available Not Available ibuprofen 800 mg tablet 04/10 completed Not Available Not Available Not Available benzonatate 200 mg capsule TAKE 1 CAPSULE BY MOUTH THREE TIMES DAILY FOR UP TO 14 DAYS NEEDED FOR COUGH 04/10 completed Not Available Not Available Not Available sumatriptan 100 mg tablet TAKE 1 TABLET BY MOUTH EVERY DAY NEEDED 06/05 completed Not Available Not Available Not Available hydrocodone 5 mg-acetamin ophen 325 mg tablet 04/10 completed Not Available Not Available Not Available ondansetron HCl 4 mg tablet Take 1 tablet every 8 hours by oral route. 04/10 completed Not Available Not Available Not Available sertraline 100 mg tablet TAKE 1 AND 1/2 TABLETS BY MOUTH EVERY DAY 06/05 completed Not Available Not Available Not Available ciprofloxac in 500 mg tablet 04/10 completed Not Available Not Available Not Available omeprazole 40 mg capsule,del ayed release TAKE 1 CAPSULE BY MOUTH DAILY 06/05 completed Not Available Not Available Not Available levothyroxi ne 88 mcg tablet TAKE 1 TABLET BY MOUTH EVERY DAY 04/10 completed Not Available Not Available Not Available doxycycline monohydrate 100 mg capsule 04/10 completed Not Available Not Available Not Available levothyroxi ne 125 mcg tablet TAKE 1 TABLET BY MOUTH EVERY DAY BEFORE A MEAL FOR HYPOTHYRO IDISM 2024 active Not Available Not Available Not Avai lable levofloxaci n 500 mg tablet TAKE 1 TABLET BY MOUTH DAILY FOR 10 DAYS FOR PNEUMONIA 04/10 completed Not Available Not Available Not Available methylpredn isolone 4 mg tablets in a dose pack 04/10 completed Not Available Not Available Not Available amoxicillin 875 mg-potassiu m clavulanate 125 mg tablet TAKE 1 TABLET BY MOUTH EVERY 12 HOURS 04/10 completed Not Available Not Available Not Available escitalopra m 10 mg tablet 04/10 completed Not Available Not Available Not Available Sprintec (28) 0.25 mg-0.035 mg tablet Take 1 tablet every day by oral route for 28 days. 04/10 completed Not Available Not Available Not Available sertraline 150 mg capsule Take 1 capsule every day by oral route. 2024 active Not Available Not Available Not Avai lable Vitals Date Recorded Body height Body mass index (BMI) Body weight Systolic blood pressure Diastolic blood pressure Provider Name and Address Organization Details Last Updated DateTime 09/10/2017 160.02 cm 28.7 kg/m2 82322.96 394 g 112 mm[Hg] 78 mm[Hg] Judith eaton [facility] 8 16:20:46 Date Recorded Body height Body mass index (BMI) Body weight Systolic blood pressure Diastolic blood pressure Provider Name and Address Organization Details Last Updated DateTime 04/10/2024 160.02 cm 32.1 kg/m2 30461.65 g 133 mm[Hg] 94 mm[Hg] FRANSISCA Bautista [facility] 4 11:52:02 Date Recorded Body height Body mass index (BMI) Body weight Oxygen saturation Oxygen saturation in Arterial blood by Pulse oximetry Heart rate Body temperature Systolic blood pressure Diastolic blood pressure Provider Name and Address Organization Details Last Updated DateTime 5 160.02 cm 32.4 kg/m2 97576.7 5 g 98 % 98 % 72 /min 97.9 [degF] 142 mm[Hg] 94 mm[Hg] Andie Beverly [place] [facility] 5 14:03:43 Date Recorded Body height Provider Name an d Address Organization Details Last Updated DateTime 06/18/2024 160.02 cm Lorena García [place] [facility] 06/18 15:57:21 Social History Question Answer Notes LastModified by Organizat ion Details LastModified Time Tobacco Smoking Status Never Smoker FRANSISCA Bautista null, [place] [facility] 04/10/2024 11:53:38 What Is Your Level Of Alcohol Consumption? None Information not available 04/10/2024 Are You Blind Or Do You Have Difficulty Seeing? No Information not available 06/05/2024 What Is Your Level Of Caffeine Consumption? Heavy 06/05/[address] Mcmillan 6 To 7 Cans Daily Information not available 06/05/2024 In The 14 Days Before Symptom Onset, Have You Had Close Contact With A Laboratory-confir med COVID-19 While That Case Was Ill? No Information not available 06/05/2024 In The 14 Days Before Symptom Onset, Have You Had Close Contact With A Person Who Is Under Investigation For COVID-19 While That Person Was Ill? No Information not available 06/05/2024 Have You Been To An Area Known To Be High Risk For COVID-19? No Information not available 06/05/2024 Are You Currently Employed? No Information not available 06/05/2024 Are You Deaf Or Do You Have Serious Difficulty Hearing? No Information not available 06/05/2024 What Type Of Diet Are You Following? REGULAR Information not available 06/05/2024 Are There Any Guns Present In Your Home? No Information not available 06/05/2024 What Was The Date Of Your Most Recent Tobacco Screening? 06/05/2024 Information not available 06/05/2024 How Many Children Do You Have? 3 Information not available 06/05/2024 Do You Use Protection During Sex? No Information not available 06/05/2024 What Is Your Relationship Status? Information not available 06/05/2024 Do You Use Your Seat Belt Or Car Seat Routinely? Yes Information not available 06/05/2024 Are You Sexually Active? Yes Information not available 06/05/2024 Do You Have Smoke And Carbon Monoxide Detectors In Your Home? Yes Information not available 06/05/2024 Are You Passively Exposed To Smoke? Yes Information no t available 06/05/2024 Do You Feel Stressed (tense, Restless, Nervous, Or Anxious, Or Unable To Sleep At Night)? [id number] Information not available 06/05/2024 Do You Use Any Illicit Or Recreational Drugs? No Information not available 04/10/2024 Do You Use Sunscreen Routinely? Yes Information not available 06/05/2024 Has Tobacco Cessation Counseling Been Provided? No Information not available 04/10/2024 Do You Or Have You Ever Used Any Other Forms Of Tobacco Or Nicotine? No Information not available 04/10/2024 Sex: Female Functional Status Question Answer Note LastModified by Organizat ion Details LastModified Time Are you able to care for yourself? Yes Information not available 06/05/2024 What is your exercise level? Occasional Information not available 06/05/2024 Mental Status None recorded. Family History Relationship Description Onset Age of this Age Resolved Age Notes LastModified by Organization Details LastModified Time Father Hypertensive disorder [email or web address] Not available 06/05 14:08:29 Medical History Condition Response Coronary Artery Disease N Other N High Blood Pressure N Atrial Fibrillation N Thyroid Problems Y Kidney or Bladder Problems N GI Problems N Depression Y COPD N Blood Clots N Have you had a mammogram in the last yea r? N Skin Problems N Eating Disorder N Anemia N Heart Attack ([place]) N Anxiety Disorder Y Diabetes N Muscle, Joint, or Bone Problems N Arthritis N Seizures/Epilepsy N Have you had a colonoscopy in the last 1 0 years? Y Acid Reflux (GERD) N Cancer N Urinary Tract Infection Y Stroke N Asthma N Allergies N Have you had a PSA blood test in the las t year? N ADHD N Substance Abuse N High Cholesterol N Hepatitis N Liver Disease N Schizophrenia N Headaches Y Heart Failure N Osteoporosis N Gynecological History Statement/Question Response Flow Light Date of LMP 06/02/2024 STIs/STDs N Date of Last Pap Smear 04/10/2024 Duration of Flow (days) 1 Sexual Problems? N Current Control Method IUD LMP Definite Obstetrics History GPAL:G 3 P 3 0 0 3 Type Value Full Term 3 Living 3 Total 3 Immunizations Vaccine Type Date Status Note Provider Nam e and Address Organization Details Recorded Time Hib, unspecified formulation 9 completed Gretchen Pilar, RMA [place], [place] [facility] 04/10/2024 11:40:58 Influenza, MDCK, quadrivalent, PF 2 completed Gretchen Pilar, [place] [facility] 04/10/2024 11:40:58 MMR 2 completed Gretchen Pilar, [place] [facility] 04/10/2024 11:40:58 MMR 8 completed Gretchen Pilar, [place] [facility] 04/10/2024 11:40:58 COVID-19, mRNA, LNP-S, PF, 30 mcg/0.3 mL dose 1 completed Gretchen Wuce, [place] [facility] 04/10/2024 11:40:58 COVID-19, mRNA, LNP-S, PF, 30 mcg/0.3 mL dose 1 completed Gretchen Pilar, [place] [facility] 04/10/2024 11:40:59 Tdap 6 completed Gretchen Pilar, [place] [facility] 04/10/2024 11:40:59 Tdap 8 completed Gretchen Pilar, [place] [facility] 04/10/2024 11:40:59 DTP 8 completed Gretchen Pilar, [place] [facility] 04/10/2024 11:40:59 DTP 2 completed Gretchen Pilar, [place] [facility] 04/10/2024 11:40:59 DTP 9 completed Gretchen Pilar, [place] [facility] 04/10/2024 11:40:59 DTP 7 completed Gretchen Quezada, [place] [facility] 04/10/2024 11:40:59 DTP 7 completed Gretchen Pilar, [place] [facility] 04/10/2024 11:40:59 OPV 8 completed Gretchen Pilar, [place] [facility] 04/10/2024 11:40:59 OPV 2 completed Gretchen Pilar, [place] [facility] 04/10/2024 11:40:59 OPV 9 completed Gretchen Pilar, [place] [facility] 04/10/2024 11:40:59 OPV 7 completed Gretchen Pilar, [place] [facility] 04/10/2024 11:40:59 OPV 7 completed Gretchen Pilar, [place] [facility] 04/10/2024 11:40:59 Influenza, split virus, trivalent, PF 4 completed Gretchen Pilar, [place] [facility] 04/10/2024 11:40:59 Td (adult), 2 Lf tetanus toxoid, preservative free, adsorbed 2 completed Gretchen Pilar, [place] [facility] 04/10/2024 11:40:59 Hep B, adolescent or pediatric 7 completed Gretchen Pilar, [place] [facility] 04/10/2024 11:40:59 Hep B, adolescent or pediatric 7 completed Gretchen Pilar, [place] [facility] 04/10/2024 11:40:59 Hep B, adolescent or pediatric 7 completed Gretchen Pilar, [place] [facility] 04/10/2024 11:40:59 Influenza, split virus, quadrivalent, PF 6 completed Gretchen Pilar, [place] [facility] 04/10/2024 11:40:59 Influenza, split virus, quadrivalent, PF 0 completed Gretchen Wuce, [place] [facility] 04/10/2024 11:40:59 Influenza, split virus, quadrivalent, PF 8 completed Gretchen Quezada, RMA null, [facility] 04/10/2024 11:40:59 Influenza, split virus, quadrivalent, PF 3 completed Gretchen Quezada, RMA [place], [place] [facility] 04/10/2024 11:40:59 Past Encounters Encounter ID Performer Location Encounter Start Date Encounter Closed Date Diagnosis/Indication Diagnosis SNOMED-CT Code Diagnosis ICD10 Code Diagnosis Note [id number] María Blanco ([facility] 205) [address] [facility] [place] [id number] 11/10/2014 10:21:56 11/10/2014 12:01:45 [id number] María Blanco ([facility] 205) [address] [facility] [place] [address] 12/13/2014 16:42:14 12/14/2014 11:15:13 [id number] María Blanco ([facility] 205) [address] [facility] [place] [address] 01/14/2015 10:17:57 01/14/2015 12:27:47 [id number] María Blanco ([facility] 205) [address] [facility] [place] [address] 02/11/2015 14:07:40 02/11/2015 17:04:48 [id number] Z33.1 [id number] María Blanco ([facility] 205) [address] [place] [address] 03/11/2015 14:08:55 03/11/2015 15:02:55 [id number] Z33.1 [id number] María Blanco ([facility] 205) [address] [facility] [place] [address] 04/04/2015 14:47:10 04/04/2015 15:13:56 [id number] Z33.1 [id number] María Linares [facility] ([facility] 205) [address] [place] [address] 04/18/2015 14:47:16 04/18/2015 16:02:19 [id number] Z33.1 [id number] María Linares [facility]om[facility] ([facility] 205) [address] [facility] [place] [address] 05/05/2015 14:54:48 05/05/2015 17:01:09 [id number] Z33.1 [id number] María Jessicanora Linares [facility] ([facility] 205) [address] [facility] [place] [address] 05/12/2015 15:48:40 05/12/2015 16:18:51 Normal [id number] Z34.93 [id number] María Jessicanora Linares [facility] ([facility] 205) [address] [facility] [place] [address] 05/19/2015 10:16:58 05/19/2015 11:37:38 Normal [id number] Z34.93 [id number] María Linares [facility] ([facility] 205) [address] [facility] [place] [address] 05/26/2015 10:47:07 05/26/2015 16:45:52 Normal [id number] Z34.93 [id number] MD Vijay Chávez [facility] ([facility] 205) [address] [facility] [place] [address] 06/16/2015 14:48:42 06/16/2015 15:23:01 depression [id number] F53 [id number] MD Vijay Chávez [facility] ([facility] 205) [address] [facility] [place] [address] 07/14/2015 15:43:30 07/15/2015 09:39:25 care [id number] Z39.2 [id number] MD Vijay Chávez [facility] ([facility] 205) [address] [facility] [place] [address] 06/07/2017 10:15:07 06/12/2017 13:40:51 Gynecologic examination 59281051 Z01.419 Body mass index 25-29 - overweight [id number] Z68.28 [id number] MD Vijay Chávez 14 OB [address] [facility] [place] [address] 09/10/2017 15:33:12 09/12/2017 15:07:24 Body mass index 25-29 - overweight [id number] Z68.28 Normal [id number] Z34.90 [id number] GAURAV Christine NP Yessenia owen [address] [place] [address] 12/17/2019 14:50:06 12/18/2019 09:00:34 Suspected COVID-19 [id number] Z03.818 D/w pt the current pandemic of COVID-19 and call for social isolation in order to blunt the curve and minimize risk and spread. Encouraged patient and family to take restrictio ns seriously. They have verbalized understand ing of such. Viral syndrome [id number] B34.9 [id number] Colette Page MD [place] 14 OB [address] [facility] [address] [place] [address] 04/10/2024 11:32:22 04/20/2024 11:53:30 Depression screening 128081627 Z13.31 Obesity 663364079 E66.9 Gynecologi c examination 89283928 Z01.248 [id number] DOE STANTON MD [facility] ([facility]) [address] [place] [address] 06/05/2024 13:56:31 06/12/2024 15:55:17 Adult health examination 661904865 Z00.00 - Reviewed risks for cardiovasc ular disease, infection, and cancer; ordered screening tests as appropriat e- Recommende d updated 8535-3420 COVID vaccine Obesity 606241326 E66.81 1 Z68.32 - Provided handout on healthy lifestyle Diabetes m ellitus screening [id number] Z13.1 - BMI >25 at age >35. DM2 screening recommende d per USPSTF; f/u A1c. Past pregn abel history of pre-eclampsia [id number] 36921 Z87.59 - Advised patient of increased risk of HTN Depressive disorder 0781 9007 F32.A - Currently stable on sertraline 150 mg daily- Patient declined therapy referral at this time Elevated blood-pressure reading without diagnosis of hypertension 147877605 R03.0 - Discussed how to monitor BP at home- RTC in 2 weeks to review BP log, to determine whether diagnosis of HTN is appropriat e, and whether to start medication s for HTN Fatigue 88779741 R53.83 - DDx includes symptomati c anemia, thyroid disease, vitamin D deficiency , iron deficiency - f/u CBC with iron studies, TSH, vitamin D; will treat as indicated by results [id number] [facility] [address] [place] [address] 06/18/2024 15:22:57 06/19/2024 09:45:14 Hypothyroidism 97885244 E03.9 - Initial diagnosis 06/05/2024 with TSH of 15 and free T4 of 0.69- Will start weight based dosing with levothyrox ine 1.5-1.8 mcg/kg = 125 mcg. Patient instructed to take medication on empty stomach.- Repeat TSH in 6 weeks and adjust dose as indicated by results Health Concerns Section Related Observation LastModified by Organization Detai ls LastModified Time None Recorded Concern Status LastModified by Organization Details LastModified Time None Recorded Advance Directives Directive None Recorded Payers Encounter Date Sequence Insurance Name Policy Number Policy Nugent Covered Member ID Nugent Member ID Guarantor Name 09/10/2017 1 [facility] [id number] Iesha Chavez [id number] Iesha Chavez 12/17/[address] [place] [address] [id number] Iesha Chavez [id number] Iesha Chavez 04/10/2024 [facility] Iesha Chavez [id number] Iesha Chavez 06/05/2024 [facility] Iesha Chavez [id number] Iesha Chavez 06/18/2024 [facility] Iesha Chavez [id number] Iesha Chavez Notes Date Note Type Note Provider Name and Address Organization Details Recorded Time 12/17/2019 text/html COVID ScreeningReported bypatient.Onset/Durati on of fever:fever; highest fever 99.8 Associated Symptoms:coughCOVID-19 Symptoms September 2019Reported bypatient.COVID-19 Signs and Symptomscough resolved; cough same; fever resolved; fever same; shortness of breath resolved; chills resolved; repeated shaking with chills resolved; muscle pain resolved; muscle pain same; headache resolved; headache same; sore throat resolved; loss of taste or smell resolved; vomiting or diarrhea resolved; fatigue resolved; anorexia resolved Associated Symptoms:no sputum production; no wheezing; no runny nose; no vomiting; no diarrhea; no body aches; no nausea; no change in mental status; no hypotension; no tachycardia 33 yo female ,spoke via phone with C/O, cough, runny nose, fever, body aches. headaches. denies being exposed to pos COVID person. GAURAV Christine NP Attn: [address] [place], [address], [facility] 12/17/2019 15:06:14 04/10/2024 text/html Annual GYNReport ed bypatient.Menstrual cycle:Normal menses Urinary symptoms:No hematuria; No incontinence Vulva:No genital lesion Vagina:Normal vaginal discharge Breast:No breast pain; No breast lump; No nipple discharge Current Contraception:Intraute rine device (iud) Sexual complaints:No sexual complaints; No pain during intercourse; Normal libido Menopausal Symptoms:No menopausal symptoms; Normal vaginal lubrication Psychological symptoms:No depression; No anxiety; No PMDD Not seen by us in 6 years Transferred care to [place] while with last daughter.( had full term vaginal delivery ) Had IUD in place minimal spotting Colette Page MD Attn: [address] [place], [address], [facility] 04/10/2024 12:11:18 06/05/2024 text/html Annual wellness- Establishing care- Follows with Patricia Page MD for [facility] REPA[employer]ER needs Concerns today- Restarted sertraline in March after job loss and father passing away.- 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 Phentermine helped in the past and also helped with energy levels. Cardiovascular risk- HTN: History of pre-eclampsia with 1st . FHx in father.- DM2: No known FHx. No GDM.- HLD: No known FHx.- Personal history of MN, CVA? Had a heart issue when given IV MgSO4 during 1st for labor.- Family history of MN, CVA? No known FHx Infection risk- Prior testing for HIV? Neg in 2018- Prior testing for HepC? None on file- History of STIs? No- Currently having unprotected sex? No - using condoms- Vaccines due? COVID Plans for - Mirena placed 2019 Cancer screenings- Breast cancer: No known FHx.- Cervical cancer: NILM (04/2024)- Colon cancer: Colonoscopy done 03/2023 for hematochezia; no polyps, so repeat in 10 years for CRC screening.- Lung cancer: Never smoker DOE STANTON MD Attn: [address]ing[address] [facility], [place], [address], [facility] 06/05/2024 15:25:42 06/18/2024 text/html Hypothyroidism- Would like to know next steps after getting TSH results back Telehealth visit- Verbal consent for telehealth services was obtained by clinical staff.- The {{patient* parent guar zora}} was seen through {{synchronous audio and video technology audio only was used due to patient technology challenges audio only was used due to internet bandwidth issues audio only was used due to connectivity issues audio only was used due to inadequate patient equipment audio only was used due to technology failure audio only was used due to patient preference* audio only was used due to: ____}}.- Visit was conducted over [employer].- Location of provider: [facility] Healthcare clinic - {{Site 16 ([place])* Site 14 ([place]) Site 20 ([place])}}- Location of patient: {{home* work other:}}- Time started: 4:20 PM- Time ended: 4:28 PM- Total length of visit: 7m8s DOE STANTON MD Attn: Accounting,[address] [facility], [place], [address], [facility] 06/18/2024 17:31:35 OBGyn Episode Ob Episode Information Episode Created Date Number of Fetuses Patient Bloodtype Patient rh Status Prepregnancy Weight lbs Domestic Partner Domestic Partner Phone Father Name Resource Economist Status 04/07/20 24 1 DELETED Fetus Data First Name Last Name Admitted to NICU Weight (g) Sex Living Outcome Pediatric Complications Fetus ID Race Codes Race Delivery Type [id number] Ulises Calculation Initial Ulises Date Initial Exam Date Initial Exam Provider Initial Ultrasound Date Last Menstrual Period Date Ultra Sound Weeks Gestation 04/07/2024 0 Eighteen To Twenty Week Ulises Update Ultra Sound Date Fundal Height At Umbil Quickening Date Ultra Sound Latest Weeks Gestation Final Ulises Confirmed By Final Ulises Confirmed Date Final Ulises Date Ultra Sound Latest Days Gestation 0 0 Menstrual History Last Menstrual Date Menses Monthly On Bcp Conception Prior Menses Frequency Hcg Plus Date Menarche Onset Age Delivery Information Delivery Date Delivery Type Labor Anesthesia Weeks Gestation Incision Type Labor Labor Length Hrs Delivered By Post Complications Tubal Sterilization Discharge Date Comments Discharge Information Feeding Method Contraceptive Method Maternal HG B and HCT Levels Ob Episode Information Episode Created Date Number of Fetuses Patient Bloodtype Patient rh Status Prepregnancy Weight lbs Domestic Partner Domestic Partner Phone Father Name Resource Economist Status 04/10/20 24 1 CLOSED Fetus Data First Name Last Name Admitted to NICU Weight (g) Sex Living Outcome Pediatric Complications Fetus ID Race Codes Race Delivery Type F Full Term [id number] Ulises Calculation Initial Ulises Date Initial Exam Date Initial Exam Provider Initial Ultrasound Date Last Menstrual Period Date Ultra Sound Weeks Gestation 0 Eighteen To Twenty Week Ulises Update Ultra Sound Date Fundal Height At Umbil Quickening Date Ultra Sound Latest Weeks Gestation Final Ulises Confirmed By Final Ulises Confirmed Date Final Ulises Date Ultra Sound Latest Days Gestation 0 0 Menstrual History Last Menstrual Date Menses Monthly On Bcp Conception Prior Menses Frequency Hcg Plus Date Menarche Onset Age Delivery Information Delivery Date Delivery Type Labor Anesthesia Weeks Gestation Incision Type Labor Labor Length Hrs Delivered By Post Complications Tubal Sterilization Discharge Date Comments 8 39 Discharge Information Feeding Method Contraceptive Method Maternal HG B and HCT Levels Ob Episode Information Episode Created Date Number of Fetuses Patient Bloodtype Patient rh Status Prepregnancy Weight lbs Domestic Partner Domestic Partner Phone Father Name Resource Economist Status 11/11/19 15 1 CLOSED Fetus Data First Name Last Name Admitted to NICU Weight (g) Sex Living Outcome Pediatric Complications Fetus ID Race Codes Race Delivery Type [id number] Vaginal Ulises Calculation Initial Ulises Date Initial Exam Date Initial Exam Provider Initial Ultrasound Date Last Menstrual Period Date Ultra Sound Weeks Gestation 0 Eighteen To Twenty Week Ulises Update Ultra Sound Date Fundal Height At Umbil Quickening Date Ultra Sound Latest Weeks Gestation Final Ulises Confirmed By Final Ulises Confirmed Date Final Ulises Date Ultra Sound Latest Days Gestation 0 0 Menstrual History Last Menstrual Date Menses Monthly On Bcp Conception Prior Menses Frequency Hcg Plus Date Menarche Onset Age Delivery Information Delivery Date Delivery Type Labor Anesthesia Weeks Gestation Incision Type Labor Labor Length Hrs Delivered By Post Complications Tubal Sterilization Discharge Date Comments [address] [place]; MIL r/t [facility] Discharge Information Feeding Method Contraceptive Method Maternal HG B and HCT Levels Ob Episode Information Episode Created Date Number of Fetuses Patient Bloodtype Patient rh Status Prepregnancy Weight lbs Domestic Partner Domestic Partner Phone Father Name Resource Economist Status 11/11/19 15 1 A Positive Desires [facility] delivery CLOSED Fetus Data First Name Last Name Admitted to NICU Weight (g) Sex Living Outcome Pediatric Complications Fetus ID Race Codes Race Delivery Type Arie Jimenez on false 3458.63 9 F Full Term [id number] [id number] White Vaginal Ulises Calculation Initial Ulises Date Initial Exam Date Initial Exam Provider Initial Ultrasound Date Last Menstrual Period Date Ultra Sound Weeks Gestation 06/05/2015 11/10/2014 12/30/2014 08/31/2014 17 Eighteen To Twenty Week Ulises Update Ultra Sound Date Fundal Height At Umbil Quickening Date Ultra Sound Latest Weeks Gestation Final Ulises Confirmed By Final Ulises Confirmed Date Final Ulises Date Ultra Sound Latest Days Gestation 05/10/19 16 35 06/07/19 16 3 Pre- Flowsheet Flowsheet Date 11/10/2014 Cole Score Blood Edema Fundus Height Fundus Units Glucose Ketones Leukocytes Nitrite Labor Signs Protein Cervic Dilation Cervic Effacement Cervic Station 10 wks 0cm 0% -3 Type Weight in lbs Pre/Post Dialysis Refused 133.331556771079 BP Diastolic BP Location Tested BP Systolic BP Type 78 106 sitting Fetus Heart Rate Present A 172 Present Fetus Movement Comments Had severe pulmonary edema a nd possible MN due to Magnesium usage in first . Had issues as well as pre-eclampsia. Eventually delivered at 37-38 weeks. ( induced)CF (-) 06/03/12 Flowsheet Date 12/13/2014 Cole Score Blood Edema Fundus Height Fundus Units Glucose Ketones Leukocytes Nitrite Labor Signs Protein Cervic Dilation Cervic Effacement Cervic Station Type Weight in lbs Pre/Post Dialysis Refused 139.525053527349 BP Diastolic BP Location Tested BP Systolic BP Type 62 88 sitting Fetus Heart Rate Present A 156 Present Fetus Movement Comments 15 weeks doing well Flowsheet Date 01/14/2015 Cole Score Blood Edema Fundus Height Fundus Units Glucose Ketones Leukocytes Nitrite Labor Signs Protein Cervic Dilation Cervic Effacement Cervic Station none 19 wks none trace Type Weight in lbs Pre/Post Dialysis Refused 145.0230082769 BP Diastolic BP Location Tested BP Systolic BP Type 62 102 sitting Fetus Heart Rate Present A 158 Present Fetus Movement A Yes Comments Girl on US [place] No pro blems. declines msafp Flowsheet Date 02/11/2015 Cole Score Blood Edema Fundus Height Fundus Units Glucose Ketones Leukocytes Nitrite Labor Signs Protein Cervic Dilation Cervic Effacement Cervic Station 22 cm Type Weight in lbs Pre/Post Dialysis Refused 154.151055935921 BP Diastolic BP Location Tested BP Systolic BP Type 62 92 sitting Fetus Heart Rate Present A 140 Present Fetus Movement A Yes Comments doing well, no issues, sugar test at [facility] before next visit Flowsheet Date 03/11/2015 Cole Score Blood Edema Fundus Height Fundus Units Glucose Ketones Leukocytes Nitrite Labor Signs Protein Cervic Dilation Cervic Effacement Cervic Station 25 cm Type Weight in lbs Pre/Post Dialysis Refused 156.624577658547 BP Diastolic BP Location Tested BP Systolic BP Type 68 98 sitting Fetus Heart Rate Present A 140 Present Fetus Movement A Yes Comments doing well. discussed f.u US around 35-36 weeks due to breech Flowsheet Date 04/04/2015 Cole Score Blood Edema Fundus Height Fundus Units Glucose Ketones Leukocytes Nitrite Labor Signs Protein Cervic Dilation Cervic Effacement Cervic Station none 28 cm trace Type Weight in lbs Pre/Post Dialysis Refused 165.162004983661 BP Diastolic BP Location Tested BP Systolic BP Type 68 102 sitting Fetus Heart Rate Present A 154 Present Fetus Movement A Yes Comments doing well, no big issues. H appy BP is behaving Flowsheet Date 04/18/2015 Cole Score Blood Edema Fundus Height Fundus Units Glucose Ketones Leukocytes Nitrite Labor Signs Protein Cervic Dilation Cervic Effacement Cervic Station 30 cm none neg Type Weight in lbs Pre/Post Dialysis Refused 176.710518163976 BP Diastolic BP Location Tested BP Systolic BP Type 76 118 sitting Fetus Heart Rate Present A 144 Present Fetus Movement A Yes Comments f/u US after next visit ( br ee) Flowsheet Date 05/05/2015 Cole Score Blood Edema Fundus Height Fundus Units Glucose Ketones Leukocytes Nitrite Labor Signs Protein Cervic Dilation Cervic Effacement Cervic Station 32 cm none neg Type Weight in lbs Pre/Post Dialysis Refused 177.519076256797 BP Diastolic BP Location Tested BP Systolic BP Type 78 126 sitting Fetus Heart Rate Present A 144 Present Fetus Movement A Yes Comments Doing well, worried about ge tting pre eclampsia again Flowsheet Date 05/12/2015 Cole Score Blood Edema Fundus Height Fundus Units Glucose Ketones Leukocytes Nitrite Labor Signs Protein Cervic Dilation Cervic Effacement Cervic Station 34 cm none trace Type Weight in lbs Pre/Post Dialysis Refused 180.114270064473 BP Diastolic BP Location Tested BP Systolic BP Type 92 128 sitting Fetus Heart Rate Present A 137 Present Fetus Movement A Yes Comments doing well, trace protein, s light diastolic raise, pre-eclampsia issues re-enforced Flowsheet Date 05/19/2015 Cole Score Blood Edema Fundus Height Fundus Units Glucose Ketones Leukocytes Nitrite Labor Signs Protein Cervic Dilation Cervic Effacement Cervic Station none 35 cm none neg 2cm 60% -2 Type Weight in lbs Pre/Post Dialysis Refused 183.196081752223 BP Diastolic BP Location Tested BP Systolic BP Type 72 110 sitting Fetus Heart Rate Present A 138 Present Fetus Movement A Yes Comments doing well. BP excellent, no protein, labor instructions Flowsheet Date 05/26/2015 Cole Score Blood Edema Fundus Height Fundus Units Glucose Ketones Leukocytes Nitrite Labor Signs Protein Cervic Dilation Cervic Effacement Cervic Station none 35 cm none trace Type Weight in lbs Pre/Post Dialysis Refused 185.889285646662 BP Diastolic BP Location Tested BP Systolic BP Type 92 116 sitting Fetus Heart Rate Present A 134 Present Fetus Movement A Yes Comments Plan 39 week induction per p t. wishes Menstrual History Last Menstrual Date Menses Monthly On Bcp Conception Prior Menses Frequency Hcg Plus Date Menarche Onset Age 0408/31/2014 Delivery Information Delivery Date Delivery Type Labor Anesthesia Weeks Gestation Incision Type Labor Labor Length Hrs Delivered By Post Complications Tubal Sterilization Discharge Date Comments 6 [facility] [address] Page 06/02/2015 Discharge Information Feeding Method Contraceptive Method Maternal HG B and HCT Levels Bottle Ob Episode Information Episode Created Date Number of Fetuses Patient Bloodtype Patient rh Status Prepregnancy Weight lbs Domestic Partner Domestic Partner Phone Father Name Resource Economist Status 06/16/19 16 1 DELETED Ulises Calculation Initial Ulises Date Initial Exam Date Initial Exam Provider Initial Ultrasound Date Last Menstrual Period Date Ultra Sound Weeks Gestation 0 Eighteen To Twenty Week Ulises Update Ultra Sound Date Fundal Height At Umbil Quickening Date Ultra Sound Latest Weeks Gestation Final Ulises Confirmed By Final Ulises Confirmed Date Final Ulises Date Ultra Sound Latest Days Gestation 0 0 Menstrual History Last Menstrual Date Menses Monthly On Bcp Conception Prior Menses Frequency Hcg Plus Date Menarche Onset Age Delivery Information Delivery Date Delivery Type Labor Anesthesia Weeks Gestation Incision Type Labor Labor Length Hrs Delivered By Post Complications Tubal Sterilization Discharge Date Comments 6 Regional-Ep idural 39 GT Discharge Information Feeding Method Contraceptive Method Maternal HG B and HCT Levels Ob Episode Information Episode Created Date Number of Fetuses Patient Bloodtype Patient rh Status Prepregnancy Weight lbs Domestic Partner Domestic Partner Phone Father Name Resource Economist Status 09/11/19 18 1 A Positive CLOSED Fetus Data First Name Last Name Admitted to NICU Weight (g) Sex Living Outcome Pediatric Complications Fetus ID Race Codes Race Delivery Type [id number] Ulises Calculation Initial Ulises Date Initial Exam Date Initial Exam Provider Initial Ultrasound Date Last Menstrual Period Date Ultra Sound Weeks Gestation 04/18/2018 09/10/2017 07/12/2017 0 Eighteen To Twenty Week Ulises Update Ultra Sound Date Fundal Height At Umbil Quickening Date Ultra Sound Latest Weeks Gestation Final Ulises Confirmed By Final Ulises Confirmed Date Final Ulises Date Ultra Sound Latest Days Gestation 0 04/18/20 18 0 Pre-bashir Flowsheet Flowsheet Date 09/10/2017 Cole Score Blood Edema Fundus Height Fundus Units Glucose Ketones Leukocytes Nitrite Labor Signs Protein Cervic Dilation Cervic Effacement Cervic Station Type Weight in lbs Pre/Post Dialysis Refused 162.920487764168 BP Diastolic BP Location Tested BP Systolic BP Type 78 112 sitting Fetus Heart Rate Present Fetus Movement Comments Menstrual History Last Menstrual Date Menses Monthly On Bcp Conception Prior Menses Frequency Hcg Plus Date Menarche Onset Age 0307/12/2017 Delivery Information Delivery Date Delivery Type Labor Anesthesia Weeks Gestation Incision Type Labor Labor Length Hrs Delivered By Post Complications Tubal Sterilization Discharge Date Comments Discharge Information Feeding Method Contraceptive Method Maternal HG B and HCT Levels
--- OUTSIDE RECORDS SUMMARY | 2024-07-20 12:51 | XMS_ITS ---
Author Organization [facility] Address [address] [place] [address] Phone Care Team Providers Care Captain Fire Prevention Bureau Name Role Phone Unavailable Unavailable Unavailable Plan of Treatment No Plan of Treatment Recorded Assessments Includes: Assessments for all patient encounters No Assessments Recorded Medical Equipment - Implanted Devices Includes: Current and historical Devices No Medical Equipment Recorded Medications Administered Includes: Administered Medications in patient's chart No Administered Medications Recorded Results Includes: Results from 07/21/2023 through 07/20/2024 No Results Recorded For Specified Dates History of Present Illness History of Present Illness not supported for this document type No History of Present Illness Recorded Social History No Social History Recorded - Smoking Status Unknown Medical History Includes: Medical History in patient's chart No Medical History Recorded Family History Includes: Family History in patient's chart No Family History Recorded Review of Systems Review of Systems not supported for this document type No Review of Systems Recorded Mental Status No Mental Status Recorded Functional Status No Functional Status Recorded Physical Exam Physical Exam not supported for this document type No Physical Exam Recorded Clinical Notes Includes: Signed Clinical Notes starting from 05/25/2022 No Clinical Notes Recorded
--- OUTSIDE RECORDS SUMMARY | 2024-07-20 12:51 | XMS_ITS | Clinical Summary ---
Author Organization [facility] [address] [facility] Address [address] [place] [address] Care Team Providers Care Company Driver Name Role Phone Eden Cook SAFETY LAMP KEEPER Primary Care Provider + Allergies Active Allergy [...] 07/12/2014 Heavy menstrual bleeding 07/12/2014 contractions 11/17/2012 Surgical History Surgery Date Site/Laterality Comments COLONOSCOPY 03/20/2023 Medical History Medical History Date Comments Hx Other Medical Breast implants 2010 Hx Other Medical Kidney stones; Comments: CEB 05/22/2016 - Social History Tobacco Use Types Packs/Day Years [...] on file Legal Sex Female [address] [employer] 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 Gender Identity Not on file Sexual Orientation Not on file Obstetrics History Last Filed Vital Signs Vital Sign Reading Time Taken Comments Blood Pressure 126/84 04/24/2023 6:[address] 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 Pulse 78 04/24/2023 6:[address] 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 Temperature 37.7 C (99.9 F) 04/24/2023 6:[address] 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 Respiratory Rate 22 04/24/2023 6:[address] 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 Oxygen Saturation 99% 04/24/2023 6:[address] [employer] 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 Inhaled Oxygen Concentration - - Weight 83 kg (183 lb) 04/24/2023 6:[address] [employer] 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 Height 162.6 cm (5' 4 ) 04/24/2023 6:[address] [employer] 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 Body Mass Index 31.41 04/24/2023 6:[address] [employer] 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 Plan of Treatment Health Maintenance Due Date Last Done Comments Cervical Cancer Screening 1986 Depression Screening 1986 Hepatitis C Screening 1986 Varicella Vaccines (1 of 2 - 13+ 2-dose series) 12/23/1999 Regular Well Visit/Exam 18-64 2004 Covid-19 Vaccine ( season) 2024 10/26/2020, 10/05/2020 Influenza Vaccine (#1) 2024 2, 03/01/2020, 03/13/2018, Additional history exists DTaP/Tdap/Td Vaccine (8 - Td or Tdap) 03/13/2028 03/13/2018, 05/31/2015, 03/27/2002, Additional history exists Hepatitis B Screening Completed 11/23/1996 , 07/17/1996, 06/19/1996 HPV Vaccines Aged Out No longer eligi ble based on patient's age to complete this topic Pneumococcal vaccine <65 Aged Out No longer eligible based on patient's age to complete this topic [place] [address] [facility] CHOICE PLUS [place] [id number] [facility] CHOICE PL[facility] Advance Directives For more information, please contact: [phone] * Full Code (Latest Code Status on File) Date Activated Date Inactivated Comments 03/20/2023 11:24 AM 03/20/2023 5:38 PM * Full Code Date Activated Date Inactivated Comments 03/20/2023 11:24 AM 03/20/2023 11:24 AM Care Teams Company Driver Relationship Specialty Start Date End Date Eden Cook NP [address] [place] [address] PCP - General Nurse Practitioner 03/26/22
--- OUTSIDE RECORDS SUMMARY | 2024-07-20 12:51 | XMS_ITS | Clinical Summary ---
Author Organization [facility] Address [address] [place] [address] Care Team Providers Care Sprinkling Truck Driver Name Role Phone Unavailable Primary Care Provider Unavailabl e Source Comments [facility],non-owned Affiliates and Associated Physician Practices is amultiple site organization consisting of ambulatory clinics and hospital sitesin [place], [place], [place] and [place]. This disclosure is being madepursuant to the Care Everywhere program and may not contain all information available regarding this patient. Last updated 18.[facility] Social History Tobacco Use Types Packs/Day Years Used Date Smoking Tobacco: Never Assessed Sex and Gender Information Value Date Recorded Sex Assigned at Not on file Gender Identity Not on file Sexual Orientation Not on file Plan of Treatment Health Maintenance Due Date Last Done Comments PAP SMEAR 1986 HIV SCREENING 2001 HEPATITIS C SCREENING 12/17/2004 DTAP/TDAP/TD VACCINES (1 - Tdap) 2005 HEPATITIS B VACCINE (1 of 3 - 19+ 3-dose series) 2005 COVID-19 VACCINE (2023-2 5 season) 2024 INFLUENZA VACCINE (#1) 2024 DEPRESSION SCREENING 05/06/2024 ZOSTER VACCINE (1 of 2) 2036 HIB VACCINE Aged Out No longer eligi ble based on patient's age to complete this topic HPV VACCINE Aged Out No longer eligi ble based on patient's age to complete this topic MENINGOCOCCAL (Group B) VACC INE SHARED DECISION-MAKING Aged Out No longer eligibl e based on patient's age to complete this topic MENINGOCOCCAL GROUPS A/C/Y/W VACCINE Aged Out No longer eligible b ased on patient's age to complete this topic PNEUMOCOCCAL VACCINE Aged Out No long er eligible based on [place] [id number]
--- OUTSIDE RECORDS SUMMARY | 2024-07-20 12:51 | XMS_ITS | Referral Summary ---
Author Organization [facility] Address [address] 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 This disclosure is being madepursuant to the Care Everywhere program and may not contain all information available regarding this patient. Last updated 18.[facility] Social History Tobacco Use Types Packs/Day Years Used Date Smoking Tobacco: Never Assessed Sex and Gender Information Value Date Recorded Sex Assigned at Not on file Gender Identity Not on file Sexual Orientation Not on file Plan of Treatment Not on file
--- OUTSIDE RECORDS SUMMARY | 2024-07-20 12:51 | XMS_ITS | Data Portability ---
Author Organization [facility], Main Office Address [address] [place] [address] Care Team Providers Care Mediation Commissioner Name Role Phone EDEN BOATENG Primary Care Provider EDEN BOATENG Referring Provider [phone] MAGALY HANSEN Primary Care Provider Assessment No assessment recorded. Plan of Treatment Reminders Order Date Submit Date Provider Last Modified By Organization Details Last Modified Time Details Appointments None recorded. Lab TSH + free T4, serum 2023 024 [facility], [address], [place], [address], 4 11:09:14 TSH, serum or plasma [address] (Lab), [address] [place], [address], 3 08:37:50 Referral None recorded. Procedures None recorded. Surgeries None recorded. Imaging None recorded. Medication Orders Wegovy 0.25 mg/0.5 mL subcutaneou s pen injector 2023 024 [facility] #[id number], [address], [place], [place], [id number], 4 10:46:46 Zepbound 2.5 mg/0.5 mL subcutaneou s pen injector 2023 024 [facility], [address], [place], [place], [id number], 4 10:46:46 levothyroxi ne 125 mcg tablet 2023 024 [facility], [address], [place], [place], [id number], 4 10:46:45 Wegovy 0.25 mg/0.5 mL subcutaneou s pen injector [address] [facility]35668, [address], [place], [place], [id number], 4 10:23:58 Wegovy 0.5 mg/0.5 mL subcutaneou s pen injector [address] [facility]37089, [address], [place], [place], [id number], 4 10:24:02 sumatriptan 100 mg tablet 2022 023 [facility], [address], [place], [place], [id number], 4 10:40:13 levothyroxi ne 88 mcg tablet 2022 023 [address] [facility], [address], [place], [place], [id number], 4 10:39:01 phentermine 37.5 mg tablet 2022 023 [address] [facility], [address], [place], [place], [id number], 3 15:38:05 phentermine 37.5 mg tablet 2022 023 [facility] #68462, [address], [place], [place], [id number], 15:38:05 Patient TargetsNo targets recorded. Patient Instructions Encounter Date Encounter Id Patient Instructions Last Modified By Organization Details Last Modified Time 07/31/2022 [id number] FU in 1 mo [email or web address] Not available 07/05 10:35:50 08/27/2022 [id number] Fu 1 mo [email or web address] Not available 08/27 10:58:15 01/04/2023 [id number] FU in 6 mo fu thyroid, migraine, weight [email or web address] Not available 01/04/2023 16:01:19 Reason for Referral None Reported. Results Created Date Observation Date Name Description Value Unit Range Abnormal Flag Note LastModifiedBy Organization Detail LastModifiedTime 07/14/1907/14/2022 TSH W/REF FARHAN TO FT4 TSH w/reflex to FT4 3.14 mIU/L normal Refer ence Range > or = 20 Years 0.40- 4.50 Pregn abel Range s First trime ster 0.26- 2.66 Secon d trime ster 0.55- 2.73 Third trime ster 0.43- 2.91 Not Available [facility] [address] [place], [address], 07/14/2022 08:56:12 Result Notes None recorded. Problems Name Problem SNOMED Code Status Onset Date Resolution Date Notes Provider Name and Address Organization Details Recorded Time Fatigue 35990629 Active 2022 Eden Boateng NP [address], [address], [place], [address] , [facility] 10:33:34 Migraine 42973621 Active 2022 Eden Boateng NP [address], [address], [place], [address] , [facility] 15:49:48 Obesity 541729784 Active 2023 RACHEL Cody [address] [facility], [address], [place], [address] , [facility] 4 10:40:57 Bilateral elbow joint pain 7984084005606 9103 Active 2021 Not Available [facility] 3 00:43:52 Bilateral carpal tunnel syndrome 7324784043298 9101 Active 2021 Not Available [facility] 3 00:43:52 Pain of right shoulder joint 9273477943160 9100 Active 2021 Not Available [facility] 3 00:43:52 Pain of left elbow joint 0396194560039 9104 Active 2021 Not Available [facility] 3 00:43:52 Pain of right elbow joint 6761148829772 9109 Active 2021 Not Available [facility] 3 00:43:52 Mixed anxiety and depressive disorder 178191037 Active 2021 Not Available [facility] 3 00:43:52 Thyroid stimulatin g hormone level above reference range 403051752 Active 2021 Not Available [facility] 3 00:43:52 Impingemen t syndrome of right shoulder region 3377930372269 02 Active 2021 Not Available [facility] 3 00:43:52 Lateral epicondyli tis of right humerus 3325180586606 07 Active 2021 Not Available [facility] 3 00:43:52 Multiple joint pain 57581848 Active 2021 Not Available [facility] 3 00:43:52 Tension-ty pe headache 565688991 Active 2019 Not Available [facility] 3 00:43:53 Hypothyroi dism 06177389 Active 2021 Not Available [facility] 3 00:43:53 Obese 292640688 Active 2021 Not Available [facility] 3 00:43:53 Anxiety 98732499 Active 2019 Not Available [facility] 3 00:43:53 Problem Notes None recorded. Procedures Surgical History Date Name Laterality Status Provider Name and Address Organization Details Recorded Time 10/26/19 Carpal tunnel surgery completed Not Available [facility] 07/04/2022 00:41:21 abdominoplasty completed Not Available [facility] 07/04/2022 00:41:21 extraction of wisdom tooth completed Not Available [facility] 07/04/2022 00:41:21 Imaging Results None recorded. Procedure Notes None recorded. Medical Equipment None Reported. Allergies Allergen ID Allergen Name Allergen Category Reaction Reaction Severity Criticality Documentation Date Start Date Code Code System Note Provider Name and Address Organization Details Recorded Time 66 Substance with sulfonami de structure and antibacte rial mechanism of action (substanc e) medicatio n rash Not available Not available 07/04/2022 [id number] SNOMED Not Available [facility] 00:46:44 Medications Name Sig Start Date Stop Date Status Note LastModified by Organization Details LastModified Time carisoprodo l 350 mg tablet TAKE 1 TABLET BY MOUTH THREE TIMES DAILY NEEDED FOR MUSCLE PAIN active Not Available Not Available No t Available amoxicillin 500 mg capsule TKAE 1 CAPSULE BY MOUTH 3 TIMES A DAY FOR 7 DAYS 01/04 completed Not Available Not Available Not Available buspirone 5 mg tablet TAKE 1 TABLET BY MOUTH TWICE DAILY 09/26 completed Not Available Not Available Not Available promethazin e-DM 6.25 mg-15 mg/5 mL oral syrup TAKE 5 ML BY MOUTH EVERY 4 TO 6 HOURS NEEDED FOR COUGH 11/16 completed Not Available Not Available Not Available nabumetone 750 mg tablet TAKE 1 TABLET BY MOUTH TWICE DAILY WITH FOOD NEEDED FOR PAIN 09/26 completed Not Available Not Available Not Available tramadol 37.5 mg-acetamin ophen 325 mg tablet 09/26 completed Not Available Not Available Not Available tizanidine 4 mg tablet TAKE 1 TABLET BY MOUTH EVERY 6 HOURS NEEDED DIRECTED TO RELAX MUSCLES 09/26 completed Not Available Not Available Not Available benzonatate 200 mg capsule 09/26 completed Not Available Not Available Not Available sumatriptan 100 mg tablet TAKE 1 TABLET BY MOUTH EVERY DAY NEEDED active Not Available Not Available No t Available hydrocodone 5 mg-acetamin ophen 325 mg tablet TAKE 1 TABLET BY MOUTH EVERY 6 HOURS NEEDED FOR PAIN 11/16 completed Not Available Not Available Not Available ondansetron HCl 4 mg tablet TAKE 1 TABLET BY MOUTH EVERY 8 HOURS active Not Available Not Available No t Available bupivacaine HCl 0.5 % (5 mg/mL) injection solution Take 4 mg by injection route. active Not Available Not Available No t Available prednisone 20 mg tablet 09/26 completed Not Available Not Available Not Available sertraline 100 mg tablet TAKE 1 AND 1/2 TABLETS BY MOUTH EVERY DAY 2023 active Not Available Not Available Not Avai lable phentermine 37.5 mg tablet TAKE 1 TABLET BY MOUTH EVERY DAY 01/04 completed Not Available Not Available Not Available tramadol 50 mg tablet 09/26 completed Not Available Not Available Not Available levothyroxi ne 25 mcg tablet TAKE 1 TABLET BY MOUTH EVERY DAY 02/16 completed Not Available Not Available Not Available levothyroxi ne 75 mcg tablet Take 1 tablet every day by oral route. active Not Available Not Available No t Available oxycodone-a cetaminophe n 5 mg-325 mg tablet TAKE 1 TABLET BY MOUTH EVERY 6 HOURS NEEDED FOR PAIN active Not Available Not Available No t Available levothyroxi ne 88 mcg tablet TAKE 1 TABLET BY MOUTH EVERY DAY active Not Available Not Available No t Available DOK 100 mg capsule TAKE ONE CAPSULE BY MOUTH DAILY active Not Available Not Available No t Available Kenalog 10 mg/mL suspension for injection In office injection administe red by the provider active [facility]: 0003- 0494- 20 Not Available Not Available Not Available benzonatate 100 mg capsule TAKE 1 CAPSULE BY MOUTH EVERY 8 HOURS 11/16 completed Not Available Not Available Not Available doxycycline monohydrate 100 mg capsule 09/26 completed Not Available Not Available Not Available levothyroxi ne 50 mcg tablet Take 1 tablet every day by oral route. active Not Available Not Available No t Available pantoprazol e 40 mg tablet,jewel yed release TAKE 1 TABLET BY MOUTH EVERY MORNING FOR 14 DAYS 09/26 completed Not Available Not Available Not Available levothyroxi ne 125 mcg tablet Take 1 tablet(s) every day by oral route as directed for 30 days. active Not Available Not Available No t Available diclofenac sodium 75 mg tablet,jewel yed release 03/01 completed Not Available Not Available Not Available methylpredn isolone 4 mg tablets in a dose pack FOLLOW PACKAGE DIRECTION S 11/16 completed Not Available Not Available Not Available albuterol sulfate HFA 90 mcg/actuati on aerosol inhaler INHALE 2 PUFFS BY MOUTH EVERY 6 HOURS NEEDED FOR WHEEZING 09/26 completed Not Available Not Available Not Available ondansetron 4 mg disintegrat ing tablet 09/26 completed Not Available Not Available Not Available sertraline 50 mg tablet TK 1 T PO QD 07/12 completed Not Available Not Available Not Available amoxicillin 875 mg-potassiu m clavulanate 125 mg tablet TAKE 1 TABLET BY MOUTH TWICE DAILY FOR 10 DAYS active Not Available Not Available No t Available nitrofurant oin monohydrate /macrocryst als 100 mg capsule TAKE 1 CAPSULE BY MOUTH EVERY 12 HOURS FOR 7 DAYS 09/26 completed Not Available Not Available Not Available lidocaine (PF) 10 mg/mL (1 %) injection solution In office injection administe red by the provider 11/16 completed [facility]: 0409- 4276- 17 Not Available Not Available Not Available Wegovy 0.25 mg/0.5 mL subcutaneou s pen injector Inject by subcutane ous route for 28 days. active Not Available Not Available No t Available Wegovy 0.5 mg/0.5 mL subcutaneou s pen injector Inject by subcutane ous route for 28 days. 09/26 completed Not Available Not Available Not Available Zepbound 2.5 mg/0.5 mL subcutaneou s pen injector Inject by subcutane ous route for 28 days. active Not Available Not Available No t Available Vitals Date Recorded Body height Body mass index (BMI) Body weight Heart rate Oxygen saturation Oxygen saturation in Arterial blood by Pulse oximetry Respiratory rate Body temperature Systolic blood pressure Diastolic blood pressure Provider Name and Address Organization Details Last Updated DateTime 3 162.56 cm 31.9 kg/m2 05677.1 8 g 73 /min 99 % 99 % 16 /min 98 [degF] 124 mm[Hg] 86 mm[Hg] Dianne Stein RN [place] [employer] [facility] 3 10:16:28 Date Recorded Body height Body mass index (BMI) Body weight Systolic blood pressure Diastolic blood pressure Provider Name and Address Organization Details Last Updated DateTime 08/27/2022 162.56 cm 30.7 kg/m2 64599.03 g 122 mm[Hg] 82 mm[Hg] Eden Boateng NP [address], [address], [place], [address], [place] [employer] [facility] [employer] [facility] 3 10:57:50 Date Recorded Heart rate Respiratory rate Oxygen saturation Oxygen saturation in Arterial blood by Pulse oximetry Pain severity - 0-10 verbal numeric rating [Score] - Reported Body temperature Provider Name and Address Organization Details Last Updated DateTime 3 80 /min 16 /min 97 % 97 % 0 96.7 [degF] Eden Villarreal RN [facility] [employer] [facility] 3 10:55:14 Date Recorded Body height Body mass index (BMI) Body weight Body temperature Heart rate Respiratory rate Oxygen saturation Oxygen saturation in Arterial blood by Pulse oximetry Pain severity - 0-10 verbal numeric rating [Score] - Reported Systolic blood pressure Diastolic blood pressure Provider Name and Address Organization Details Last Updated DateTime 3 162.56 cm 30.8 kg/m2 50003.8 3 g 98.1 [degF] 77 /min 16 /min 97 % 97 % 0 128 mm[Hg] 82 mm[Hg] Eden Villarreal RN [facility] [employer] [facility] 3 10:28:58 Date Recorded Body height Body mass index (BMI) Body weight Body temperature Heart rate Heart rate Oxygen saturation Oxygen saturation in Arterial blood by Pulse oximetry Pain severity - 0-10 verbal numeric rating [Score] - Reported Respiratory rate Systolic blood pressure Diastolic blood pressure Provider Name and Address Organization Details Last Updated DateTime 3 162.56 cm 31.3 kg/m2 32849.2 1 g 97 [degF] 69 /min 69 /min 98 % 98 % 0 16 /min 124 mm[Hg] 80 mm[Hg] Eden Villarreal RN [facility] [employer] [facility] 3 15:40:49 Date Recorded Body weight Provider Name an d Address Organization Details Last Updated DateTime 04/15/2023 90352.22 g Eden Boateng NP [address], [facility] [address], [place], [address], [place] [facility] [employer] 04/15/2023 20:33:00 Date Recorded Body height Body mass index (BMI) Body weight Body temperature Heart rate Respiratory rate Oxygen saturation Oxygen saturation in Arterial blood by Pulse oximetry Pain severity - 0-10 verbal numeric rating [Score] - Reported Systolic blood pressure Diastolic blood pressure Provider Name and Address Organization Details Last Updated DateTime 4 162.56 cm 32.5 kg/m2 38396.3 6 g 97.7 [degF] 78 /min 20 /min 98 % 98 % 0 130 mm[Hg] 88 mm[Hg] Eden Villarreal RN [employer] 4 10:26:04 Social History Question Answer Notes LastModified by Organizat ion Details LastModified Time Tobacco Smoking Status Never Smoker Not Available [facility] 07/04/2022 00:40:36 Do You Have An Advance Directive? No Information not available 09/24/2022 What Is Your Level Of Alcohol Consumption? Occasional MIGRATION.[id number] [id number] Information not available 07/04/2022 Are You Blind Or Do You Have Difficulty Seeing? No MIGRATION.74156 50626 Information not available 07/04/2022 Is Blood Transfusion Acceptable In An Emergency? Yes Information not available 01/04/2023 What Is Your Level Of Caffeine Consumption? Moderate MIGRATION.50947 92583 Information not available 07/04/2022 What Is Your Code Status? Full Code Information not available 09/24/2022 In The 14 Days Before Symptom Onset, Have You Had Close Contact With A Laboratory-confir med COVID-19 While That Case Was Ill? No MIGRATION.02373 92819 Information not available 07/04/2022 In The 14 Days Before Symptom Onset, Have You Had Close Contact With A Person Who Is Under Investigation For COVID-19 While That Person Was Ill? No MIGRATION.23453 42212 Information not available 07/04/2022 Are You Currently Employed? Yes Information not available 01/04/2023 Are You Deaf Or Do You Have Serious Difficulty Hearing? No MIGRATION.31650 99460 Information not available 07/04/2022 What Type Of Diet Are You Following? 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 2 MIGRATION.71221 05362 Information not available 07/04/2022 On Those Days That You Engage In Moderate To Strenuous Exercise, How Many Minutes, On Average, Do You Exercise? 30 Information not available 01/04/2023 Have There Been Any Changes To Your Family Or Social Situation? No MIGRATION.67260 01130 Information not available 07/04/2022 Do You Use Insect Repellent Routinely? Yes MIGRATION.50837 95648 Information not available 07/04/2022 Where Do You Live? SingleLevelHouse Information not available 09/24/2022 Do You Have A Medical Power Of Software Test Manager? No Information not available 09/24/2022 What Was The Date Of Your Most Recent Tobacco Screening? 01/25/2021 MIGRATION.64177 98530 Information not available 07/04/2022 How Many Children Do You Have? 3 Information not available 09/24/2022 Have You Ever Been Counseled For Unhealthy Alcohol Use? No MIGRATION.88831 26973 Information not available 07/04/2022 Do You Have Any Pets? Yes 2 MIGRATION.77696 02064 Information not available 07/04/2022 What Is Your Relationship Status? MIGRATION.43709 03255 Information not available 07/04/2022 Do You Use Your Seat Belt Or Car Seat Routinely? Yes MIGRATION.30480 53944 Information not available 07/04/2022 Do You Have Smoke And Carbon Monoxide Detectors In Your Home? Yes MIGRATION.48665 18799 Information not available 07/04/2022 Are There Any Smokers In Your House? No MIGRATION.82208 64485 Information not available 07/04/2022 Do You Participate In Social Media? Yes MIGRATION.10582 11105 Information not available 07/04/2022 What Types Of Sporting Activities Do You Participate In? Walk Information not available 01/04/2023 Do You Feel Stressed (tense, Restless, Nervous, Or Anxious, Or Unable To Sleep At Night)? [id number] Information not available 09/24/2022 Do You Use Any Illicit Or Recreational Drugs? No MIGRATION.66798 38944 Information not available 07/04/2022 Do You Use Sunscreen Routinely? Yes MIGRATION.57493 81471 Information not available 07/04/2022 Has Tobacco Cessation Counseling Been Provided? No MIGRATION.35897 67040 Information not available 07/04/2022 Have You Recently Traveled Abroad? No MIGRATION.11398 40938 Information not available 07/04/2022 Do You Have Any Dietary Restrictions? No MIGRATION.94004 48078 Information not available 07/04/2022 Do You Or Have You Ever Used Any Other Forms Of Tobacco Or Nicotine? No MIGRATION.23443 89550 Information not available 07/04/2022 Sex: Female Functional Status Question Answer Note LastModified by Organizat ion Details LastModified Time Do you have difficulty walking or climbing stairs? No MIGRATION.[id number] 026 Information not available 07/04/2022 Do you have transportation difficulties? No MIGRATION.4011378 026 Information not available 07/04/2022 Are you able to walk? YESWOREST MIGRATION.0870552 026 Information not available 07/04/2022 Do you have difficulty doing errands alone? No MIGRATION.7399536 026 Information not available 07/04/2022 Are you able to care for yourself? Yes MIGRATION.7936348 026 Information not available 07/04/2022 Do you have difficulty dressing or bathing? No MIGRATION.3441928 026 Information not available 07/04/2022 What is your exercise level? Occasional MIGRATION.7245997 026 Information not available 07/04/2022 Mental Status Question Answer Note LastModified by Organizat ion Details LastModified Time Do you have difficulty concentrating, remembering or making decisions? No MIGRATION.[id number] 6 Information not available 07/04/2022 Family History Relationship Description Onset Age of this Age Resolved Age Notes LastModified by Organization Details LastModified Time Father No current problems or disability MIGRATION.[id number] Not available 07/04/2022 00:41:22 Mother No current problems or disability MIGRATION.229 [id number] Not available 07/04/2022 00:41:23 Medical History Condition Response BLINDNESS N RHEUMATIC FEVER N KIDNEY STONES N BLADDER PROBLEMS N MRSA N OTHER # 1 N POLIO N LUNG DISEASE/DISORDER N HISTORY OF DRUG ABUSE N COPD N RADIATION / CHEMOTHERAPY N Other # 2 N BLOOD DISEASES N SURGERY N EAR OR HEARING PROBLEMS N MUMPS N SHINGLES N BOWEL PROBLEMS N FEMALE PROBLEMS / INFECTIONS N DEPRESSION (INCLUDING POST ) Y STROKE/TIA N THYROID DISEASE N ULCERS N BENIGN PROSTATIC HYPERPLASIA N MEASLES N CERVICALGIA N TB SKIN TEST N HYPOTENSION N MYOCARDIAL INFARCTION N OBESITY N PARAPELGIA N GERD/NAUSEA N ANEURYSM N URINARY/BLADDER/KIDNEY PROBLEMS N CORONARY ARTERY DISEASE (CAD) N MENIERE'S DISEASE N ADDICTION CONCERNS N ENDOMETRIOSIS N USE OF BLOOD THINNERS N SKIN PROBLEMS N EMPHYSEMA N GASTROINTESTINAL DISORDER N MUSCLE,JOINT OR BONE PROBLEMS N GASTROINTESTINAL BLEEDING N BLOOD CLOTS N ASTHMA N CATARACTS N ERECTILE DYSFUNCTION N GI PROBLEMS N CHF N Low Testosterone N NEUROPATHY N INFERTILITY N AIDS/HIV N FRACTURES N CHEMOTHERAPY / RADIATION N VISION/EYE PROBLEMS N LIVER DISEASE N MALE HYPOGONADISM N TOURETTE'S N ANXIETY DISORDER Y BLOOD TRANSFUSION N ANEMIA/BLOOD DISORDER N CHRONIC EAR INFECTIONS N BRONCHITIS N TUBERCULOSIS N GLAUCOMA N FOOT PROBLEM N DIVERTICULITIS N SLEEP APNEA N CHICKENPOX N ALLERGIES/HAYFEVER N INFECTIOUS DISEASE N PROSTATE N HEART ARRHYTHMIA N INSOMNIA N HIGH CHOLESTEROL / HYPERLIPIDEMIA N EYE PROBLEMS N HYPERTHYROIDISM Y EATING DISORDER N EDEMA N CHRONIC PAIN SYNDROME N CAROTID BLOCKAGE N CONSTIPATION N BACK / NECK PROBLEMS N HAVE YOU BEEN HOSPITALIZED OR SEEN IN [facility] IN THE PAST YEAR ? N ATHEROSCLEROSIS N BREAST PROBLEMS N DIALYSIS N ECZEMA N FIBROMYALGIA N OSTEOPOROSIS N ARTHRITIS N NO SIGNIFICANT PAST MEDICAL HISTORY N APPENDICITIS N DIABETES, TYPE N BAD TEETH N HEARTBURN / REFLUX N ADD/ADHD N AUTISM SPECTRUM DISORDER (ASD) N HEPATITIS / LIVER DISEASE N PULMONARY DISEASE N GOUT N SLEEP DISORDER N ALZHEIMER'S DISEASE N PAIN N HERPES N DEMENTIA N HEADACHES/MIGRAINES N SEIZURES/EPILEPSY N VASCULAR DISEASE N PACEMAKER N DIZZINESS N HEART DISEASE/HEART PROBLEMS N KIDNEY DISEASE N DEVELOPMENTAL OR BEHAVIORAL DISORDERS N MULTIPLE SCLEROSIS N SCARLET FEVER N MENTAL DISORDER/ILLNESS N CARDIAC ARRHYTHMIA N CANCER: SPECIFY N PNEUMONIA N ATRIAL FIBRILLATION N Gall Stones N PULMONARY EMBOLISM N AUTOIMMUNE DISEASE N Gynecological History Statement/Question Response Abnormal Pap N Flow Light Date of LMP STIs/STDs N Dislike of Light during Menstrual Headac he N Date of Last Pap Duration of Flow (days) Most Recent Mammogram Current Control Method IUD Breast Problems none How many live births 3 Date of Last Colonoscopy Most Recent Bone Density Sexually Active? Y Menses Monthly N Date of Last Pap Smear Discharge none Obstetrics History GPAL:G 3 P 0 0 0 0 Immunizations Vaccine Type Date Status Note Provider Nam e and Address Organization Details Recorded Time Influenza, split virus, quadrivalent, preservative 2 completed Not Available [facility] 07/04/2022 00:46:38 SARS-COV-2 (COVID-19) vaccine, UNSPECIFIED 1 completed Not Available [facility] 07/04/2022 00:46:38 SARS-COV-2 (COVID-19) vaccine, UNSPECIFIED 1 completed Not Available [facility] 07/04/2022 00:46:38 Influenza, split virus, quadrivalent, PF 0 completed Not Available [facility] 07/04/2022 00:46:38 Past Encounters Encounter ID Performer Location Encounter Start Date Encounter Closed Date Diagnosis/Indication Diagnosis SNOMED-CT Code Diagnosis ICD10 Code Diagnosis Note [id number] [facility] Ron [address] [place] [address] 1 07/12/2020 00:00:00 07/12/2020 15:31:44 [id number] [facility] Ron [address] [place] [address]241 1 11/25/2020 00:00:00 11/25/2020 13:16:39 [id number] [facility] [address] [facility] [address] [place] [address] 01/25/2021 00:00:00 01/25/2021 17:17:20 [id number] [facility] Ron [address] [place] [address] 1 05/12/2021 00:00:00 05/12/2021 13:59:21 [id number] [facility] [address] [facility] [address] [place] [address] 06/06/2021 00:00:00 06/06/2021 12:07:11 [id number] [facility] Ron [address] [place] [address] 1 06/09/2021 00:00:00 06/09/2021 10:49:23 [id number] [facility] [place] [address] [place] [address]698 1 07/07/2021 00:00:00 07/07/2021 10:36:32 [id number] [facility] [place] [address] [place] [address]466 1 08/04/2021 00:00:00 08/04/2021 10:26:31 [id number] [facility] [address] [place] [address] 08/29/2021 00:00:00 08/29/2021 12:37:41 [id number] [facility] [address] [place] [address] 09/12/2021 00:00:00 09/12/2021 13:28:08 [id number] [facility] [address] [facility] [address] [place] [address] 11/07/2021 00:00:00 11/07/2021 17:04:29 [id number] [facility] [place] [address] [place] [address] 1 11/16/2021 00:00:00 11/16/2021 11:02:53 [id number] [facility] [address] [address] 1 03/14/2022 00:00:00 03/14/2022 11:31:06 [id number] [facility] [address] [address] 1 05/23/2022 00:00:00 05/23/2022 11:05:00 [id number] Eden Boateng NP S_GMG [address] [address] 1 07/31/2022 09:58:29 07/31/2022 10:39:11 Obese [id number] E66.9 Diet and exercise. Start on phentermin e. Fu in 1 mo. Fatigue 97836508 R53.83 Will clean up diet. Work on losing weight. Document new findings. If not improved in 1 mo, consider new labs. Hypothyroidism [id number] E03.9 Levothyrox ine 88 mcg po daily. [id number] Eden Boateng NP [address] [address] 08/27/2022 10:13:56 08/27/2022 11:00:06 Obese [id number] E66.9 Diet and exercise. Start on phentermin e. Fu in 1 mo. [id number] Eden Boateng NP [address] [address] 1 09/24/2022 10:15:48 09/24/2022 11:19:26 Obese [id number] E66.9 Low carb, low fat diet. Pt to check with insurance to see if Wegovy would be covered and let us know. She is aware of shortage currently. Finish rest of phentermin e she has at home. Anxiety [id number] F41.9 Stable sertraline 100 mg, 1.5 tab po daily. Hypothyroidism 41331633 E03.9 Levothyrox ine 88 mcg po daily.Labs July 2022 [id number] Eden Boateng NP [address] [address] 01/04/2023 15:28:08 01/04/2023 16:12:44 Anxiety 35589554 F41.9 Stable sertraline 100 mg, 1.5 tab po daily.Busp irone 5 mg po bid Obese 235970071 E66.9 Low carb, low fat diet. Pt to check with insurance to see if Wegovy would be covered and let us know. She is aware of shortage currently. Finish rest of phentermin e she has at home. Last fill 08/2022. 01/04/23 pt interested in wegovy. Unsure if in stock. Migraine 16509158 G43.90 9 sumatripta n 100 mg started 01/04/23 Already on SSRI. Hypothyroidism 26313175 E03.9 Levothyrox ine 88 mcg po daily.Labs July 2022 [id number] RACHEL Cody [address] [place] [address] 09/27/2023 10:08:11 09/27/2023 10:53:29 Obesity 294391368 E66.9 She was tried phentermin e and had rebound weight gain. She lives active lifestyle and limits calories. She has BMI of Hypothyroidism 82871625 E03.9 Health Concerns Section Related Observation LastModified by Organization Detai ls LastModified Time None Recorded Concern Status LastModified by Organization Details LastModified Time None Recorded Advance Directives Directive N: Payers Encounter Date Sequence Insurance Name Policy Number Policy Nugent Covered Member ID Nugent Member ID Guarantor Name 07/31/2022 1 [facility] [id number] Iesha Monique Scott [id number] Iesha Eneida Scott 08/27/2022 1 [facility] [id number] Iesha Monique Scott [id number] Iesha oMnique Scott 09/24/2022 1 [facility] [id number] Iesha Monique Scott [id number] Iesha Eneida Scott 01/04/2023 1 [facility] [id number] Iesha Monique Scott [id number] Iesha Eneida Scott 09/27/2023 1 [facility] [id number] Iesha Monique Scott [id number] Iesha Monique Scott Notes Date Note Type Note Provider Name and Address Organization Details Recorded Time 07/31/2022 text/html Here for discuss ion about weight and thyroid. Lacking energy. Some better now that thyroid is better.Can't get weight under control.Hasn't been on good diet. Has had rough time over the winter.Was down to 156 October 2021. Now at 186. Wanting to get back on phentermine. Eden Boateng NP [address], [place], [address], [employer] 07/31/2022 10:39:46 08/27/2022 text/html Here for weight check. Was 186 last time. Now 179 today.Feeling short energy. Appetite decreased some. No bm in 3 days. Generally daily. Fatigue still present.Still good on water intake. Aprox 64 ounces daily.Has enjoyed carbonated flavored water. Eden Boateng NP [address], [place], [address], [employer] 08/27/2022 10:59:18 09/24/2022 text/html Here for weight check. Home was 175 last time and was 177 today.Still on phentermine 37.5 and has some at home.Would like to lose 20 lbs. Open to options.States she is active, but kids sports and eating times off.Working on getting rid of 1 pepsi daily. Working to not eat out 2 times weekly due to sports. Has been active, cardio 30 min 2 days weekly. Eden Boateng NP [address], [place], [address], [employer] [facility] [employer] 09/24/2022 11:14:33 01/04/2023 text/html Here for follow up on anxiety/depression, tsh, weight. anxiety/depression-Thy roid- 3.14 ok 07/2022. Labs ordered 10/10/22 results?Weight- Recently to for otitis and sore throat. Migraines- diagnosed in 20s. Having them more often in the past 3 mo than ever used to. Used to be 1-4 monthly. Would take excedrin or nap. Photosensitivity +. +Sensitivity to noise. Now getting migraine all last week, and roughly 1-2 weekly.Brightness is likely contributing to migraines. Migraines can last 1-3 days. Has had to dim lights and unscrew lightbulb. +nausea +vomiting. On SSRI already. Hasn't been on triptan. Sleep- not a great sleeper since having kids- light sleeper. Restless 1-2 times nightly. Has tried on melatonin, but no relief. Eden Boateng NP [address], [place], [address], [employer] [facility] [employer] 01/04/2023 16:02:17 09/27/2023 text/html Iesha Chavez is a 37 year old female patient here today to transition care. She was previously under the care of Eden Boateng DNP. She goes to [facility] to get Zepbound. She previously took phentermine. She felt that she did well but noticed that she had significant weight gain. She is also trying to limit calories and living an active lifestyle to lose weight. She has a history of hypothyroidism. Her last TSH (09/10/2023) was 10.18. We will increase levothyroxine to 125 mcg PO daily and recheck TSH in 6 weeks. She struggles with anxiety and depression. She is taking sertraline 150 mg PO daily. She notices this is not sufficient. She feels this is due to weight and fatigue. She would like to wait until her 6 week FU to see if she is feeling better Flu shot: OVID vaccines: 10/2020, 10/2020Tdap: 5-6 years ago in pregnancyWWE: overdue, recommended FU at OB Magaly Hansen, GROCERY STOCKER [address] [facility] [address], [place], [address], [facility] [employer] 09/27/2023 10:52:54 OBGyn Episode No OBEpisode recorded.
--- OUTSIDE RECORDS SUMMARY | 2024-07-20 12:51 | XMS_ITS | Clinical Summary ---
Author Organization [facility] Address [address] [place] [address] Phone Care Team Providers Care Shift Supervisor Film Processing Name Role Phone Eden Cook CLOTH WASHER BACK TENDER, HAND CLOTH EXAMINER Primary Care Pro vider Allergies Active Allergy Reactions Criticality Noted Date Comments Sulfa Antibiotics Rash 05/15/2015 Medications VENTOLIN HFA 108 (90 BASE) MCG/ACT Aerosol Solution take 2 Puffs by inhalation every 4 hours as needed for Wheezing. 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 Cellulitis and abscess of lower extremity Immunizations Immunization Administration Dates Next Due DTP Vaccine 12/03/1991, 9,06/23/1987,1986,02/21/1987 Hepatitis B Vaccine, Pediatric/adolescent 11/23/1996,07/17/1996,06/19/1996 Hib Vaccine,unspecified Formulation 06/25/1988 Influenza Vaccine, Quadrivalent, PF 03/13/2018,0 05/31/2015 MMR Vaccine 12/03/1991,04/02/1988 OPV 12/03/1991, 9,06/23/1987,1986,02/21/1987 TD VACCINE 03/27/2002 TDAP Vaccine 03/13/2018,05/31/2015 Family History Relation Name Status Comments Father Alive Mother Alive Social History Tobacco Use Types Packs/Day Years Used Date Smoking Tobacco: Never Smokeless Tobacco: Never Tobacco Cessation:Counseling Given: Yes Alcohol Use Standard Drinks/Week Comments No 0 (1 standard drink = 0.6 oz pur e alcohol) Sexually Active Control Partners Comments Yes Male Comments No Sex and Gender Information Value Date Recorded Sex Assigned at Female 12/10/2023 7:36 PM CDT Legal Sex Female 8:54 PM CDT Gender Identity Female 12/10/2023 7:36 PM CDT Sexual Orientation Not on file Last Filed Vital Signs Vital Sign Reading Time Taken Comments Blood Pressure 122/82 12/10/2023 8:45 PM CDT Pulse 97 12/10/2023 9:30 PM CDT Temperature 37.8 C (100 F) 12/10/2023 6:31 PM CDT Respiratory Rate 22 12/10/2023 9:30 PM CDT Oxygen Saturation 96% 12/10/2023 9:30 PM CDT Inhaled Oxygen Concentration - - Weight 85.3 kg (188 lb) 12/10/2023 6:31 PM CDT Height 162.6 cm (5' 4 ) 12/10/2023 6:31 PM CDT Body Mass Index 32.27 12/10/2023 6:31 PM CDT Plan of Treatment Health Maintenance Due Date Last Done Comments Hepatitis C Virus (HCV) Screening 1985 HPV/Cotest 2016 Cervical Cancer Screening (CCS) 07/13/2018 Pap Smear 07/13/2018 07/14/2015, 07/12/2014 Influenza Immunization (#1) 01/05/202404/05, 03/09/2022, 02/26/2022, Additional history exists SARS-COV-2 Immunization ( season) 2024 10/26/2020, 10/05/2020 DTaP/Tdap/Td Immunization (8 - Td or Tdap) 03/13/2028 03/13/2018, 05/31/2015, 03/27/2002, Additional history exists Td Immunization Every 10 Years (Adults With 1 Tdap) 03/13/2028 03/13/2018, 05/31/2015, 03/27/2002 Respiratory Syncytial Virus (RSV) Immunization (Adult) (1 - 1-dose 75+ series) 2061 Hepatitis B Immunization Completed 997, 07/17/1996, 06/19/1996 Meningococcal Immunization (ACWY) Aged Out No longer eligible based on patient's age to complete this topic Pneumococcal Immunization Combined Aged Out No longer eligible based on patient's age to complete this topic Rotavirus Immunization Aged Out No lo nger eligible based on patient's age to complete this topic Procedures Procedure Name Priority Date/Time Associated Diagnosis Comments PATHOLOGY CYTOLOGY SALESPERSON MEN'S HATS Routine 07/14/2015 from Last 3 Months or Most Recently Relevant to Health Maintenance Results * PATHOLOGY CYTOLOGY SALESPERSON MEN'S HATS (07/14/2015) Specimen of unknown material (specimen) Rory Page MD PATHOLOGY/CYTOLOGY ORD ERABLES Final Result from Last 3 Months or Most Recently Relevant to Health [place] [address] [place] Member Subscriber Plan / Payer (Ef fective 2023-Present) Name:Iesha Chavez Relation to Subscriber:Self Name:Iesha Chavez Payer ID:[id number] Group ID:Not on file Type:Not on file Address: [address] Advance Directives * Full Code (Latest Code Status on File) Date Activated Date Inactivated Comments 05/31/2015 6:53 AM 06/02/2015 8:13 PM Full Code: FULL ARREST: Attempt Resuscitation/CPR and use intubation and mechanical ventilation as indicated. PRE-ARREST: Use all measures to stabilize patient. * Full Code Date Activated Date Inactivated Comments 05/24/2015 12:19 AM 05/24/2015 4:24 AM Full Code: FULL ARREST: Attempt Resuscitation/CPR and use intubation and mechanical ventilation as indicated. PRE-ARREST: Use all measures to stabilize patient. * Full Code Date Activated Date Inactivated Comments 05/15/2015 1:07 PM 05/15/2015 5:07 PM Full Code: FULL ARREST: Attempt Resuscitation/CPR and use intubation and mechanical ventilation as indicated. PRE-ARREST: Use all measures to stabilize patient. Care Teams Shift Supervisor Film Processing Relationship Specialty Start Date End Date Eden Cook, CLOTH WASHER BACK TENDER, HAND CLOTH EXAMINER [address] [place] [address] PCP - General Certified Nurse Practitioner 01/05/21
--- OUTSIDE RECORDS SUMMARY | 2024-07-20 12:51 | XMS_ITS | Clinical Summary ---
Author Organization [facility] Address [address] [place] [address] Phone Care Team Providers Care Precision Aircraft Systems Assembler Name Role Phone Unavailable Unavailable Unavailable Reason for Visit and Chief Complaint NO SHOW Plan of Treatment No Plan of Treatment Recorded Assessments Includes: Assessments from this encounter No Assessments Recorded Medical Equipment - Implanted Devices Includes: Current Devices No Medical Equipment Recorded Medications Administered Includes: Administered Medications from this encounter No Administered Medications Recorded Results Includes: Results discussed during this encounter No Results Recorded For Specified Dates History of Present Illness Includes: History of Present Illness from this encounter No History of Present Illness Recorded Social History No Social History Recorded - Smoking Status Unknown Medical History Includes: Medical History addressed during this encounter No Medical History Recorded Family History Includes: Family History addressed during this encounter No Family History Recorded Review of Systems Includes: Review of Systems from this encounter No Review of Systems Recorded Mental Status Includes: Mental Status from this encounter No Mental Status Recorded Functional Status Includes: Functional Status from this encounter No Functional Status Recorded Physical Exam Includes: Physical Exam from this encounter No Physical Exam Recorded Encounters Encounter Provider Location Date Check-In Time Check-Out Time Diagnosis NO SHOW TALIA BEARD MD [facility] RELEASE MANAGER 10/18/2017 2:51PM 11:59PM Clinical Notes Includes: Clinical Notes from this encounter No Clinical Notes Recorded
--- OUTSIDE RECORDS SUMMARY | 2024-07-20 12:51 | XMS_ITS ---
Care Plan - [facility] Created on: July 20, 2024 MARIANA NAIR : 1985 Sex: Female Author Organization [facility] Address [address] [place] [address] Phone Care Team Providers Care Shot Dropper Name Role Phone Unavailable Unavailable Unavailable
--- OUTSIDE RECORDS SUMMARY | 2024-07-20 12:51 | XMS_ITS | Encounter Summary ---
Author Organization [facility] Address [address] [place] [address] Care Team Providers Care Automotive Mechanic Name Role Phone Anuel Grover CUSTOMER EXPERIENCE INTERN Primary Care Provi arlette Anuel Grover CUSTOMER EXPERIENCE INTERN Primary Care Provi arlette No, Physician Primary Care Provider [phone] Eden Cook CUSTOMER EXPERIENCE INTERN Primary Care Provider + Encounter Details Date Type Department Care Team (Late st Contact Info) Description 05/22/2016 Orders Only [facility] ProviderPranav MD [address] [place] [address] Social History Tobacco Use Types Packs/Day Years Used Date Smoking Tobacco: Never Alcohol Use Standard Drinks/Week Comments Yes 0 (1 standard drink = 0.6 oz pur e alcohol) Comments Unknown Sex and Gender Information Value Date Recorded Sex Assigned at Not on file Legal Sex Female 2:54 PM ACCOUNT SUPPORT ANALYST Gender Identity Not on file Sexual Orientation Not on file documented as of this encounter Plan of Treatment Not on file documented as of this encounter Procedures Procedure Name Priority Date/Time Associated Diagnosis Comments CARDIOLOGY REPORT 05/22/2016 documented in this encounter Results * CARDIOLOGY REPORT (05/22/2016) Anatomical Region Laterality Modality Other Narrative 05/22/2016 Ordered by an unspecified provider. Historical Provider [facility] LOVELY RABAGO Final Result documented in this encounter Visit Diagnoses Not on filedocumented in this encounter Additional Health Concerns Infection Onset Date Last Indicated Resolved Time COVID: Suspected 08/17/2021 08/17/2021 08/17/2021 10:59 PM CDT COVID: Suspected 03/01/2023 03/01/2023 03/01/2023 8:47 AM CDT COVID: Suspected 04/24/2023 04/24/2023 04/24/2023 6:40 PM ACCOUNT SUPPORT ANALYST Influenza, adult 04/24/2023 04/24/2023 05/01/2023 3:05 AM ACCOUNT SUPPORT ANALYST documented as of this encounter Care Teams Automotive Mechanic Relationship Specialty Start Date End Date Anuel Grover NP PCP - General 08/03/16 08/16/21 Anuel Grover NP PCP - General 07/28/09 08/02/16 No, Physician PCP - General 08/17/21 03/25/22 Eden Cook NP [address] [place] [address] [facility] [address] PCP - General Nurse Practitioner 03/26/22 documented as of this encounter
--- OUTSIDE RECORDS SUMMARY | 2024-07-20 12:51 | XMS_ITS | Clinical Summary ---
Author Organization [facility] Address [address] [place] [address] Phone Care Team Providers Care Policy Writer Typist Name Role Phone Unavailable Unavailable Unavailable Reason [...] from this encounter No Physical Exam Recorded Clinical Notes Includes: Clinical Notes from this encounter No Clinical Notes Recorded
--- OUTSIDE RECORDS SUMMARY | 2024-07-20 12:51 | XMS_ITS | Patient Health Summary ---
Author Organization [facility] Address [address] [place] [address] Care Team Providers Care Medical Supply Technician Name Role Phone Unavailable Primary Care Provider Unavailabl e Note from [facility],non-owned Affiliates and Associated Physician Practices is amultiple site organization consisting of ambulatory clinics and hospital sitesin [place], [place], [place] and [place]. This disclosure is being madepursuant to the Care Everywhere program and may not contain all information available regarding this patient. Last updated 18.[facility] Social History Tobacco Use Types Packs/Day Years Used Date Smoking Tobacco: Never Assessed Sex and Gender Information Value Date Recorded Sex Assigned at Not on file Gender Identity Not on file Sexual Orientation Not on file
--- OUTSIDE RECORDS SUMMARY | 2024-07-20 12:57 | XMS_ITS ---
Care Plan - [facility] Created on: July 20, 2024 MARIANA NAIR : 1985 Sex: Female Author Organization [facility] Address [address] [place] [address] Phone Care Team Providers Care Final Assembly And Packing Supervisor Name Role Phone Unavailable Unavailable Unavailable
--- OUTSIDE RECORDS SUMMARY | 2024-07-20 12:57 | XMS_ITS ---
Author Organization [facility] Address [address] [place] [address] Phone Care Team Providers Care Crackling Press Operator Name Role Phone Unavailable Unavailable Unavailable Plan [...]
--- OUTSIDE RECORDS SUMMARY | 2024-07-20 12:57 | XMS_ITS | Clinical Summary ---
Author Organization [facility] Address [address] [place] [address] Phone Care Team Providers Care Decorative Engraver Apprentice Name Role Phone Unavailable Unavailable Unavailable Reason [...] Time Diagnosis NO SHOW TALIA BEARD MD [facility] CDL BULK DRIVER 10/18/2017 2:51PM 11:59PM Clinical Notes Includes: Clinical Notes from this encounter No Clinical Notes Recorded
--- OUTSIDE RECORDS SUMMARY | 2024-07-20 12:57 | XMS_ITS | Clinical Summary ---
Author Organization [facility] Address [address] [place] [address] Phone Care Team Providers Care Personal Finance Instructor Name Role Phone Unavailable Unavailable Unavailable Reason [...]
== END 2024-07-20 11:19 | disposition home or self-care (01) ==
PROVIDERS: Emergency Provider Nurse Practitioner; PCP Family Medicine
DX: J06.9 Acute upper respiratory infection, unspecified (principal); E03.9 Hypothyroidism, unspecified
CPT/HCPCS: 87081; 87880; 99203; G0463